=== PATIENT | female | born 1975 | race Caucasian/White ===

== ENCOUNTER 2017-03-08 23:08 | Inpatient (IN) | payer MEDICAID, OTHER ==
[2017-03-09 00:42] LABS: Hematocrit 37 % (35-47); Hemoglobin 12.4 g/dl (12.0-16.0); Mean Corpuscular HGB Conc 34 g/dl (31-36); Mean Corpuscular Hemoglobin 31 pg (27-31); Mean Corpuscular Volume 92 fL (80-97); Mean Platelet Volume 8 um3 (7.4-10.4); Red Blood Count 4.04 10^6/ul (4.0-5.4); Red Cell Distribution Width 14 % (10.5-15)
[2017-03-09 00:56] LABS: ALT 53 U/L (7-52); AST 50 U/L (13-39); Albumin 3.7 g/dL (3.2-5.2); Alkaline Phosphatase 40 U/L (34-104); Anion Gap 4 mmol/L (2-11); BUN/Creatinine Ratio 20.7 (8-20); Blood Urea Nitrogen 18 mg/dL (6-24); CO2 Carbon Dioxide 25 mmol/L (22-32); Calcium 8.7 mg/dL (8.6-10.3); Chloride 105 mmol/L (101-111); EGFR African American 91.4 (>60); EGFR Non-African American 71.1 (>60); Globulin 3.1 g/dL (2-4); Glucose 94 mg/dL (70-100); Potassium 3.6 mmol/L (3.5-5.0); Sodium 134 mmol/L (133-145); Total Protein 6.8 g/dL (6.4-8.9)
[2017-03-09 01:21] LABS: Acetaminophen < 15 mcg/mL; Alcohol < 10 mg/dL (<10); Salicylate < 2.50 mg/dL (<30)
[2017-03-09 01:32] LABS: TSH (Thyroid Stimulating Horm) 3.13 mcIU/mL (0.34-5.60)
[2017-03-09] MEDS ORDERED: Ibuprofen TAB* 600 MG PO ONE (01:34)
[2017-03-09] MEDS ORDERED: Nicotine Inhaler* 10 MG AMP INH ONE (01:34)
[2017-03-09] MEDS ORDERED: Mouth Piece, Nicotine* 1 EACH CARTRIDGE ONE (01:52)
[2017-03-09 03:01] LABS: Urine Bilirubin Negative (Negative); Urine Glucose Negative (Negative); Urine Nitrite Negative (Negative)
[2017-03-09] MEDS ORDERED: LORazepam TAB(*) 1 MG PO ONE (03:02)
[2017-03-09 03:12] LABS: Benzodiazepine Urine Screen None Detected (None Detect)
[2017-03-09] MEDS ORDERED: Carisoprodol TAB* 350 MG ONE (04:28)
[2017-03-09] MEDS ORDERED: Mouth Piece, Nicotine* 1 EACH CARTRIDGE INH SCH (04:28)
[2017-03-09] MEDS ORDERED: Al Hydrox/Mg Hydrox/Simet LIQ* 30 ML UDC PO PRN (04:28)
[2017-03-09] MEDS: Carisoprodol TAB* 350 MG Q6H PRN PO ×3 (04:30→17:40)
[2017-03-09] MEDS ORDERED: Loperamide CAP* 4 MG INITIAL PRN DOSE PO (04:30)
[2017-03-09] MEDS ORDERED: Nicotine Inhaler* 10 MG AMP ONE (04:33)
[2017-03-09] MEDS: Nicotine GUM* 2 MG PO PRN (04:34)
--- NOTE | 2017-03-09 04:59 | ED ---
Jose Guadalupe Espinoza Alok, scribed for Preston Cedillo MD on 03/09/17 at 0223 . Psychiatric Complaint - HPI Summary HPI Summary: 41F presents to the ED for depression. Pt notes recent stress 3-4 weeks ago followed by 2-3 days of crisis. Pt note nausea, POSEY, back pain, and trouble sleping. Pt denies auditory hallucinations. Pt denies abd pain or lower extremity edema. Pt has h/o suicide attempts but denies hurting her self this evening. Pt notes h/o rehabilitation for substance abuse for which she recently relapsed. Pt denies ETOH use. Pt smokes tobacco. PMHx includes Hepatitis C, anxiety and depression. Pt denies taking medication for anxiety or depression for the past 3 years. Pt sees a master machinist. - History Of Current Complaint Chief Complaint: EDMentalHealth Time Seen by Provider: 03/09/17 01:27 Hx Obtained From: Patient Hx Last Menstrual Period: 03/28/14 Onset/Duration: Lasting Weeks, Still Present, Worse Since - 2-3 days ago Timing: Constant Severity Initially: Moderate Severity Currently: Moderate Character: Depressed, Anxious Aggravating Factor(s): Recent Stress, Drug Use Alleviating Factor(s): Counseling Associated Signs And Symptoms: Positive: Sleep Disturbance. Negative: Hallucinating, Paranoid Behavior Related History: Positive For: Drug Abuse Counseling Has Suicidal: Reports: Has Prior Attempt(s) - Allergies/Home Medications Allergies/Adverse Reactions: Allergies Allergy/AdvReac Type Severity Reaction Status Date / Time No Known Allergies Allergy Verified 02/22/13 23:41 PMH/Surg Hx/FS Hx/Imm Hx Endocrine/Hematology History: Denies: Hx Anticoagulant Therapy, Hx Diabetes, Hx Thyroid Disease Cardiovascular History: Denies: Hx Hypertension Respiratory History: Denies: Hx Asthma, Hx Chronic Obstructive Pulmonary Disease (COPD) GI History: Reports: Other GI Disorders - Hx GERD, hx Hep C Denies: Hx Ulcer History: Reports: Other Problems/Disorders - Uretal stone removed 02/23/13 during cystoscopy Neurological History: Reports: Other Neuro Impairments/Disorders - Hx depression Psychiatric History: Denies: Hx Eating Disorder - Surgical History Surgery Procedure, Year, and Place: twin delivery 1998, Infectious Disease History: No Infectious Disease History: Reports: Hx of Known/Suspected MRSA - leg infection 2009 Denies: Hx Clostridium Difficile, Hx Hepatitis, Hx Human Immunodeficiency Virus (HIV), Hx Shingles, Hx Tuberculosis, Traveled Outside the [place] in Last 30 Days - Family History Known Family History: Negative: Cardiac Disease, Hypertension, Diabetes - Social History Occupation: Unemployed Alcohol Use: None Substance Use Type: Reports: Cocaine, Heroin, Prescribed Substance Use Comment - Amount & Last Used: last used early this morning Smoking Status (MU): Heavy Every Day Tobacco Smoker Type: Cigarettes Length of Time of Smoking/Using Tobacco: 1 ppd Review of Systems Negative: Fever Positive: Nausea. Negative: Abdominal Pain Positive: Other - back pain. Negative: Edema Positive: Headache Positive: Anxious, Depressed All Other Systems Reviewed And Are Negative: Yes Physical Exam - Summary Physical Exam Summary: The patient is well-nourished in no acute distress and in no acute pain. The skin is warm and dry and skin color reflects adequate perfusion. HEENT: The head is normocephalic and atraumatic. The pupils are equal and reactive. The conjunctivae are clear and without drainage. Nares are patent and without drainage. Mouth reveals moist mucous membranes and the throat is without erythema and exudate. Neck is supple with full range of motion and non-tender. There are no carotid bruits. There is no neck vein distension. Respiratory: Chest is non-tender. Lungs are clear to auscultation and breath sounds are symmetrical and equal. Cardiovascular: Hear is regular rate and rhythm. There is no murmur or rub auscultated. There is no peripheral edema and pulses are symmetrical and equal. Abdomen: The abdomen is soft and non-tender. There are normal bowel sounds heard in all four quadrants and there is no organomegaly palpated. Musculoskeletal: There is no back pain noted. Extremities are non-tender with full range of motion. There is good capillary refill. There is no peripheral edema or calf tenderness elicited. No arm trauma. Neurological: Patient is alert and oriented to person, place and time. The patient has symmetrical motor strength in all four extremities. Cranial nerves are grossly intact. Deep tendon reflexes are symmetrical and equal in all four extremities. Psychiatric: The patient appears anxious and depressed and is cooperative. Triage Information Reviewed: Yes Vital Signs On Initial Exam: Initial Vitals Temp Pulse Resp BP Pulse Ox 97.1 F 75 18 124/58 99 03/08/17 23:32 03/08/17 23:32 03/08/17 23:32 03/08/17 23:32 03/08/17 23:32 Vital Signs Reviewed: Yes - [place] Coma Scale Coma Scale Total: 15 Diagnostics - Vital Signs Vital Signs Temp Pulse Resp BP Pulse Ox 03/08/17 23:55 97.1 F 75 18 124/58 99 03/08/17 23:32 97.1 F 75 18 124/58 99 - Laboratory Lab Results: Lab Results 03/09/17 03/09/17 Range/Units 00:33 00:33 WBC 5.0 (3.5-10.8) 10^3/ul RBC 4.04 (4.0-5.4) 10^6/ul Hgb 12.4 (12.0-16.0) g/dl Hct 37 (35-47) % MCV 92 (80-97) fL MCH 31 (27-31) pg MCHC 34 (31-36) g/dl RDW 14 (10.5-15) % Plt Count 179 (150-450) 10^3/ul MPV 8 (7.4-10.4) um3 Neut % (Auto) 55.4 (38-83) % Lymph % (Auto) 28.7 (25-47) % Summers % (Auto) 12.6 H (1-9) % Eos % (Auto) 2.4 (0-6) % Baso % (Auto) 0.9 (0-2) % Absolute Neuts (auto) 2.8 (1.5-7.7) 10^3/ul Absolute Lymphs (auto) 1.4 (1.0-4.8) 10^3/ul Absolute Monos (auto) 0.6 (0-0.8) 10^3/ul Absolute Eos (auto) 0.1 (0-0.6) 10^3/ul Absolute Basos (auto) 0 (0-0.2) 10^3/ul Absolute Nucleated RBC 0 10^3/ul Nucleated RBC % 0.1 Sodium 134 (133-145) mmol/L Potassium 3.6 (3.5-5.0) mmol/L Chloride 105 (101-111) mmol/L Carbon Dioxide 25 (22-32) mmol/L Anion Gap 4 (2-11) mmol/L BUN 18 (6-24) mg/dL Creatinine 0.87 (0.51-0.95) mg/dL Est GFR ( Amer) 91.4 (>60) Est GFR (Non-Af Amer) 71.1 (>60) BUN/Creatinine Ratio 20.7 H (8-20) Glucose 94 (70-100) mg/dL Calcium 8.7 (8.6-10.3) mg/dL Total Bilirubin 0.30 (0.2-1.0) mg/dL AST 50 H (13-39) U/L ALT 53 H (7-52) U/L Alkaline Phosphatase 40 (34-104) U/L Total Protein 6.8 (6.4-8.9) g/dL Albumin 3.7 (3.2-5.2) g/dL Globulin 3.1 (2-4) g/dL Albumin/Globulin Ratio 1.2 (1-3) TSH 3.13 (0.34-5.60) mcIU/mL Salicylates < 2.50 (<30) mg/dL Acetaminophen < 15 mcg/mL Serum Alcohol < 10 (<10) mg/dL Result Diagrams: 03/09/17 00:33 03/09/17 00:33 Lab Statement: Any lab studies that have been ordered have been reviewed, and results considered in the medical decision making process. Course/Dx - Course Course Of Treatment: 41 y/o female presents with anxiety/depression. Pt is medically clear for MHU evaluation @ 0134. PT signed papers 9.13 for voluntary [place] to [facility] - Differential Dx/Clinical Impression Differential Diagnosis/HQI/PQRI: Positive: Other - substance abuse Provider Diagnosis: Depression, Suicidal ideation Discharge - Discharge Plan Condition: Stable Disposition: PSYCHIATRIC FAC[place] Referrals: Non Staff,Doctor [Primary Care Provider] - The documentation as recorded by the Jose Guadalupe lowery Alok accurately reflects the service I personally performed and the decisions made by , Preston Cedillo MD.
[2017-03-09] MEDS: Vitamin THERAPEUTIC TAB PO SCH (08:37)
[2017-03-09] MEDS: BuPROPion XL* 150 MG TAB.XL PO SCH (10:39)
[2017-03-09] MEDS: Ibuprofen TAB* 400 MG Q6H PRN PO ×2 (10:40→17:40)
[2017-03-09] MEDS: Nicotine PATCH 21 MG/24 HR* PATCH TRANSDERM SCH (10:40)
[2017-03-09] MEDS: Acetaminophen TAB* 325 MG PO PRN (10:43)
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
[2017-03-09] MEDS: Gabapentin CAP(*) 100 MG PO SCH ×2 (13:46→21:13)
[2017-03-09] MEDS ORDERED: Albuterol/Ipratropium NEB.SOL* Albuterol 2.5 MG/Ipratropium 0.5 MG 3 ML INH SCH (14:00)
[2017-03-09] MEDS: Albuterol HFA INHALER* 8 gm MDI INH PRN (17:43)
[2017-03-09] MEDS: Albuterol/Ipratropium NEB.SOL* Albuterol 2.5 MG/Ipratropium 0.5 MG 3 ML INH SCH (19:23)
[2017-03-09] MEDS: MDI INH SCH (19:23)
[2017-03-09] MEDS: FLUTICAS INH SCH (19:23)
[2017-03-09] MEDS: SALMET INH SCH (19:23)
[2017-03-09] MEDS: Naproxen TAB* 250 MG PO SCH (21:13)
[2017-03-09] MEDS: Nicotine Patch Removal NOTE FOLLOW UP SCH (21:18)
[2017-03-09] MEDS: Nicotine Inhaler* 10 MG AMP INH PRN (21:57)
[2017-03-10] MEDS: Albuterol/Ipratropium NEB.SOL* Albuterol 2.5 MG/Ipratropium 0.5 MG 3 ML INH SCH ×2 (07:42→19:37)
[2017-03-10] MEDS: SALMET INH SCH ×2 (07:43→19:38)
[2017-03-10] MEDS: MDI INH SCH ×2 (07:43→19:38)
[2017-03-10] MEDS: FLUTICAS INH SCH ×2 (07:43→19:38)
[2017-03-10] MEDS ORDERED: BuPROPion XL* 150 MG TAB.XL PO SCH (09:00)
[2017-03-10] MEDS ORDERED: Fluticasone NASAL SPRAY 50MCG* 16 gm SPRAY BTL BOTH NARES SCH (09:00)
[2017-03-10] MEDS: Gabapentin CAP(*) 100 MG PO SCH (10:19)
[2017-03-10] MEDS: BuPROPion XL* 150 MG TAB.XL PO SCH (10:19)
[2017-03-10] MEDS: Naproxen TAB* 250 MG PO SCH ×2 (10:19→21:30)
[2017-03-10] MEDS: Cetirizine* 10 MG TAB PO SCH (10:20)
[2017-03-10] MEDS: Vitamin THERAPEUTIC TAB PO SCH (10:20)
[2017-03-10] MEDS: Carisoprodol TAB* 350 MG Q6H PRN PO ×3 (10:23→23:30)
[2017-03-10] MEDS: Acetaminophen TAB* 325 MG PO PRN ×3 (10:23→22:50)
[2017-03-10] MEDS: Nicotine PATCH 21 MG/24 HR* PATCH TRANSDERM SCH (10:24)
[2017-03-10] MEDS ORDERED: cloNIDine 0.1 MG PATCH* 0.1 MG/24 HR 7 DAY PATCH TRANSDERM SCH (14:00)
--- NOTE | 2017-03-10 14:02 | PN ---
Subjective - Subjective Service Type: 20724 Hosp care 15 min low complexity Subjective: The patient is somatic and uncomfortable, having opioid withdrawal with crampy muscle pain, nausea and insomnia. She is also congested and having breathing problems. She remains anxious but denies SI. Objective - Appearance Appearance: Well Developed/Nourished Dysmorphic Features: No Hygiene: Normal Grooming: Fairly Well Kept - Behavior Psychomotor Activities: Normal Exhibits Abnormal Movement: No - Attitude and Relatedness Attitude and Relatedness: Cooperative Eye Contact: Fair - Speech Quality: Unpressured Latencies: Normal Quantity: Appropriate - Mood Patient's Decription of Mood: "Anxious" - Affect Observed Affect: Fair Affect Consistent with: Euthymia - Thought Process Patient's Thought Process: Coherent Thought Content: No Passive Wish, No Suicidal Planning, No Homicidal Ideation, No Paranoid Ideation - Sensorium Experiencing Hallucinations: No, Sensorium is Clear Type of Hallucinations: Visual: No, Auditory: No, Command: No - Level of Consciousness Level of Consciousness: Alert Orientation: Yes Intact, Yes Orientated to Time, Yes Orientated to Place, Yes Orientated to Person - Impulse Control Impulse Control: Tenuous - Insight and Judgement Insight and Judgement: Fair - Group Participation Particating in Group Activities: Yes - Medication Management Medication Management Adherence: Yes Assessment - Assessment Merits Inpatient Hospitalization: For Immediate Safety, For Stabilization Inpatient DSM-IV Dx: 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 , white female with a history of cocaine and opioid use disorders arrives voluntarily seeking admission for SI two weeks after relapse on IV cocaine and heroin. Patient remains in significant opioid withdrawal, for which she is receiving clonidine detox protocol meds. Plan - Plan Treatment Plan: Name: MONA ANDERSON Birthdate: 1975 [id number] Continue clonidine detox. We have resumed the bupropion XL 150mg PO Qday and gabapentin 600mg PO TID she takes for depression and anxiety. [employer] early next week for d/c home with outpatient substance abuse follow up at [facility]. Continued Medication Management: Continue Outpt Medication Medications: Current Medications Acetaminophen (Tylenol Tab*) 650 mg PO Q4H PRN PRN Reason: PAIN or TEMP > 101 F Last Admin: 03/10/17 10:23 Dose: 650 mg Al Hydrox/Mg Hydrox/Simethicone (Maalox Plus*) 30 ml PO Q4H PRN PRN Reason: INDIGESTION Albuterol (Ventolin Hfa Inhaler*) 2 puff INH Q2H PRN PRN Reason: SOB/WHEEZING Last Admin: 03/09/17 17:43 Dose: 2 puff Albuterol/Ipratropium (Duoneb (Albuterol 2.5 Mg/Ipratropium 0.5 Mg)) 1 neb INH RT.BID [facility] Last Admin: 03/10/17 07:42 Dose: 1 neb Bupropion HCl (Wellbutrin Xl *) 150 mg PO DAILY [facility] Last Admin: 03/10/17 10:19 Dose: 150 mg Carisoprodol (Soma Tab*) 350 mg PO Q6H PRN PRN Reason: MUSCLE CRAMPS/ACHING Last Admin: 03/10/17 10:23 Dose: 350 mg Cetirizine HCl (Zyrtec*) 10 mg PO DAILY [facility] Last Admin: 03/10/17 10:20 Dose: 10 mg Clonidine HCl (Kyunvwuy-Hxg-6 0.1 Mg Patch*) 0.1 mg TRANSDERM Q7D [facility] Device (Nicotine Mouth Piece*) 1 each INH .[facility] Gabapentin (Neurontin Cap(*)) 600 mg PO TID [facility] Guaifenesin (Mucinex*) 600 mg PO BID [facility] Ibuprofen (Motrin Tab*) 800 mg PO Q6H PRN PRN Reason: BONE/JOINT PAIN Loperamide HCl (Imodium Cap*) 4 mg PO ONCE PRN PRN Reason: DIARRHEA INITIAL DOSE Loperamide HCl (Imodium Cap*) 2 mg PO .SEE BELOW PRN PRN Reason: DIARRHEA Multivitamins (Theragran Tab*) 1 tab PO DAILY [facility] Last Admin: 03/10/17 10:20 Dose: 1 tab Naproxen (Naprosyn Tab*) 500 mg PO BID [facility] Last Admin: 03/10/17 10:19 Dose: 500 mg Nicotine (Nicotine Inhaler*) 10 mg INH Q2H PRN PRN Reason: CRAVING Last Admin: 03/09/17 21:57 Dose: 10 mg Nicotine (Nicotine Patch 21 Mg/24 Hr*) 1 patch TRANSDERM DAILY [facility] Last Admin: 03/10/17 10:24 Dose: 1 patch Nicotine Polacrilex (Nicotine Gum*) 2 mg PO Q2H PRN PRN Reason: CRAVING Last Admin: 03/09/17 04:34 Dose: 2 mg Pharmacy Profile Note (Nicotine Patch Removal Note*) 1 note FOLLOW UP 2100 [facility] Last Admin: 03/09/17 21:18 Dose: 1 note Fluticasone/Salmeterol (Advair Hfa 115/21 (Nf)) 2 puff INH BID [facility] Last Admin: 03/10/17 07:43 Dose: 2 puff Trazodone HCl (Desyrel Tab*) 100 mg PO BEDTIME PRN PRN Reason: INSOMNIA - Discharge Plan Discharge Plan: Inpatient Hospitalization
[2017-03-10] MEDS ORDERED: Ondansetron TAB* 4 MG PO PRN (14:08)
[2017-03-10] MEDS: Gabapentin CAP(*) 300 MG PO SCH ×2 (14:31→21:31)
[2017-03-10] MEDS: Ibuprofen TAB* 800 MG PO PRN ×2 (17:26→22:50)
[2017-03-10] MEDS: Loperamide CAP* 2 MG AFTER EACH LOOSE STOOL MDD 16 MG PO PRN ×2 (17:26→21:33)
[2017-03-10] MEDS: Nicotine Patch Removal NOTE FOLLOW UP SCH (21:32)
[2017-03-10] MEDS: guaiFENesin ER TAB 600 MG PO SCH (21:35)
[2017-03-10] MEDS: Nicotine Inhaler* 10 MG AMP INH PRN (22:51)
[2017-03-10] MEDS: traZODone TAB* 100 MG PO PRN (23:30)
[2017-03-10] MEDS: Nicotine GUM* 2 MG PO PRN (23:30)
[2017-03-11] MEDS: MDI INH SCH ×2 (07:39→19:58)
[2017-03-11] MEDS: SALMET INH SCH ×2 (07:39→19:58)
[2017-03-11] MEDS: FLUTICAS INH SCH ×2 (07:39→19:58)
[2017-03-11] MEDS: Albuterol/Ipratropium NEB.SOL* Albuterol 2.5 MG/Ipratropium 0.5 MG 3 ML INH SCH ×2 (07:39→19:57)
[2017-03-11] MEDS: Gabapentin CAP(*) 300 MG PO SCH ×3 (08:16→20:50)
[2017-03-11] MEDS: Vitamin THERAPEUTIC TAB PO SCH (08:16)
[2017-03-11] MEDS: BuPROPion XL* 150 MG TAB.XL PO SCH (08:17)
[2017-03-11] MEDS: Naproxen TAB* 250 MG PO SCH ×2 (08:17→20:50)
[2017-03-11] MEDS: Cetirizine* 10 MG TAB PO SCH (08:17)
[2017-03-11] MEDS: Carisoprodol TAB* 350 MG Q6H PRN PO ×2 (08:18→17:29)
[2017-03-11] MEDS: Ibuprofen TAB* 800 MG PO PRN ×2 (08:18→17:29)
[2017-03-11] MEDS: Acetaminophen TAB* 325 MG PO PRN ×2 (08:18→17:29)
[2017-03-11] MEDS: guaiFENesin ER TAB 600 MG PO SCH ×2 (08:24→20:53)
[2017-03-11] MEDS: Nicotine PATCH 21 MG/24 HR* PATCH TRANSDERM SCH (08:24)
--- NOTE | 2017-03-11 17:29 | PN ---
Subjective - Subjective Subjective: Kristin endorses continued depressed mood but some improvement in previous anxiety symptoms. She denies HI/SI. She is aware of and agreeable to current plan of treatment. She requests up-titration of Buproprion XL to 300 mg, ( previously took 450 mg). Objective - Appearance Appearance: Healthy Appearing Dysmorphic Features: No Hygiene: Normal Grooming: Fairly Well Kept - Behavior Psychomotor Activities: Normal Exhibits Abnormal Movement: No - Attitude and Relatedness Attitude and Relatedness: Cooperative Eye Contact: Fair - Speech Quality: Unpressured Latencies: Normal Quantity: Terse - Mood Patient's Decription of Mood: "Sad" - Affect Observed Affect: Constricted Affect Consistent with: Dysphoria - Thought Process Patient's Thought Process: Coherent, Goal Directed Thought Content: No Passive Wish, No Suicidal Planning, No Homicidal Ideation, No Paranoid Ideation - Sensorium Experiencing Hallucinations: No, Sensorium is Clear - Level of Consciousness Level of Consciousness: Alert Orientation: Yes Intact - Impulse Control Impulse Control: Intact - Insight and Judgement Insight and Judgement: Fair - Group Participation Particating in Group Activities: Yes - Medication Management Medication Management Adherence: Yes Assessment - Assessment Merits Inpatient Hospitalization: [facility] Improve[facility], For Discharge Planning Inpatient DSM-IV Dx: Cocaine Induced Depressive DO Clinical Impression: Continues to endorse depressed mood, but denying suicidality, reasonable to increase dose of Wellbutrin XL, patient understands it will take about 2-4 weeks to get the full effect. She needs continued admission for stabilization. Plan - Plan Treatment Plan: Name: KRISTIN ANDERSON Birthdate: 1975 [id number] Medications: Current Medications Acetaminophen (Tylenol Tab*) 650 mg PO Q4H PRN PRN Reason: PAIN or TEMP > 101 F Last Admin: 03/11/17 08:18 Dose: 650 mg Al Hydrox/Mg Hydrox/Simethicone (Maalox Plus*) 30 ml PO Q4H PRN PRN Reason: INDIGESTION Albuterol (Ventolin Hfa Inhaler*) 2 puff INH Q2H PRN PRN Reason: SOB/WHEEZING Last Admin: 03/09/17 17:43 Dose: 2 puff Albuterol/Ipratropium (Duoneb (Albuterol 2.5 Mg/Ipratropium 0.5 Mg)) 1 neb INH RT.BID JULISSA Last Admin: 03/11/17 07:39 Dose: Not Given Bupropion HCl (Wellbutrin Xl *) 150 mg PO DAILY [facility] Last Admin: 03/11/17 08:17 Dose: 150 mg Carisoprodol (Soma Tab*) 350 mg PO Q6H PRN PRN Reason: MUSCLE CRAMPS/ACHING Last Admin: 03/11/17 08:18 Dose: 350 mg Cetirizine HCl (Zyrtec*) 10 mg PO DAILY [facility] Last Admin: 03/11/17 08:17 Dose: 10 mg Clonidine HCl (Ntrldlee-Syf-7 0.1 Mg Patch*) 0.1 mg TRANSDERM Q7D [facility] Last Admin: 03/10/17 14:45 Dose: 0.1 patch Device (Nicotine Mouth Piece*) 1 each INH .[facility] Gabapentin (Neurontin Cap(*)) 600 mg PO TID [facility] Last Admin: 03/11/17 14:51 Dose: Not Given Guaifenesin (Mucinex*) 600 mg PO BID [facility] Last Admin: 03/11/17 08:24 Dose: 600 mg Ibuprofen (Motrin Tab*) 800 mg PO Q6H PRN PRN Reason: BONE/JOINT PAIN Last Admin: 03/11/17 08:18 Dose: 800 mg Loperamide HCl (Imodium Cap*) 4 mg PO ONCE PRN PRN Reason: DIARRHEA INITIAL DOSE Loperamide HCl (Imodium Cap*) 2 mg PO .SEE BELOW PRN PRN Reason: DIARRHEA Last Admin: 03/10/17 21:33 Dose: 2 mg Multivitamins (Theragran Tab*) 1 tab PO DAILY [facility] Last Admin: 03/11/17 08:16 Dose: 1 tab Naproxen (Naprosyn Tab*) 500 mg PO BID [facility] Last Admin: 03/11/17 08:17 Dose: 500 mg Nicotine (Nicotine Inhaler*) 10 mg INH Q2H PRN PRN Reason: CRAVING Last Admin: 03/10/17 22:51 Dose: 10 mg Nicotine (Nicotine Patch 21 Mg/24 Hr*) 1 patch TRANSDERM DAILY [facility] Last Admin: 03/11/17 08:24 Dose: 1 patch Nicotine Polacrilex (Nicotine Gum*) 2 mg PO Q2H PRN PRN Reason: CRAVING Last Admin: 03/10/17 23:30 Dose: 2 mg Ondansetron HCl (Zofran Tab*) 4 mg PO Q6H PRN PRN Reason: NAUSEA Pharmacy Profile Note (Nicotine Patch Removal Note*) 1 note FOLLOW UP 2100 JULISSA Last Admin: 03/10/17 21:32 Dose: 1 note Fluticasone/Salmeterol (Advair Hfa 115/21 (Nf)) 2 puff INH BID [facility] Last Admin: 03/11/17 07:39 Dose: Not Given Trazodone HCl (Desyrel Tab*) 100 mg PO BEDTIME PRN PRN Reason: INSOMNIA Last Admin: 03/10/17 23:30 Dose: 100 mg - Discharge Plan Discharge Plan: Outpatient Follow Up Outpatient Program: [facility]
[2017-03-11] MEDS: Nicotine Patch Removal NOTE FOLLOW UP SCH (20:51)
[2017-03-11] MEDS: traZODone TAB* 100 MG PO PRN (20:53)
[2017-03-12] MEDS: SALMET INH SCH ×2 (07:09→21:25)
[2017-03-12] MEDS: Albuterol/Ipratropium NEB.SOL* Albuterol 2.5 MG/Ipratropium 0.5 MG 3 ML INH SCH ×2 (07:09→20:11)
[2017-03-12] MEDS: MDI INH SCH ×2 (07:09→21:25)
[2017-03-12] MEDS: FLUTICAS INH SCH ×2 (07:09→21:25)
[2017-03-12] MEDS: Gabapentin CAP(*) 300 MG PO SCH ×3 (08:31→21:22)
[2017-03-12] MEDS: BuPROPion XL* 150 MG TAB.XL PO SCH (08:31)
[2017-03-12] MEDS: guaiFENesin ER TAB 600 MG PO SCH ×2 (08:32→21:22)
[2017-03-12] MEDS: Vitamin THERAPEUTIC TAB PO SCH (08:32)
[2017-03-12] MEDS: Naproxen TAB* 250 MG PO SCH ×2 (08:32→21:22)
[2017-03-12] MEDS: Nicotine PATCH 21 MG/24 HR* PATCH TRANSDERM SCH (08:33)
[2017-03-12] MEDS: Cetirizine* 10 MG TAB PO SCH (08:33)
[2017-03-12] MEDS: Albuterol HFA INHALER* 8 gm MDI INH PRN (08:33)
[2017-03-12] MEDS: Acetaminophen TAB* 325 MG PO PRN ×2 (08:38→14:21)
[2017-03-12] MEDS: Carisoprodol TAB* 350 MG Q6H PRN PO ×3 (08:38→21:22)
[2017-03-12] MEDS: Ibuprofen TAB* 800 MG PO PRN ×3 (08:38→21:23)
[2017-03-12] MEDS: Nicotine Inhaler* 10 MG AMP INH PRN ×2 (11:55→21:23)
[2017-03-12] MEDS ORDERED: BuPROPion XL* 150 MG TAB.XL PO ONE (14:30)
[2017-03-12] MEDS: traZODone TAB* 100 MG PO PRN (21:22)
[2017-03-12] MEDS: Nicotine Patch Removal NOTE FOLLOW UP SCH (21:24)
[2017-03-13] MEDS: Nicotine PATCH 21 MG/24 HR* PATCH TRANSDERM SCH (08:10)
[2017-03-13] MEDS: Ibuprofen TAB* 800 MG PO PRN ×2 (08:11→18:06)
[2017-03-13] MEDS: Naproxen TAB* 250 MG PO SCH ×2 (08:11→20:27)
[2017-03-13] MEDS: Gabapentin CAP(*) 300 MG PO SCH ×3 (08:12→20:27)
[2017-03-13] MEDS: guaiFENesin ER TAB 600 MG PO SCH ×2 (08:13→20:28)
[2017-03-13] MEDS: BuPROPion XL* 300 MG TAB.XL PO SCH (08:13)
[2017-03-13] MEDS: Vitamin THERAPEUTIC TAB PO SCH (08:13)
[2017-03-13] MEDS: Carisoprodol TAB* 350 MG Q6H PRN PO ×2 (08:14→18:06)
[2017-03-13] MEDS: Acetaminophen TAB* 325 MG PO PRN ×3 (08:14→22:00)
[2017-03-13] MEDS: Cetirizine* 10 MG TAB PO SCH (08:14)
[2017-03-13] MEDS: SALMET INH SCH ×2 (08:16→20:28)
[2017-03-13] MEDS: FLUTICAS INH SCH ×2 (08:16→20:28)
[2017-03-13] MEDS: MDI INH SCH ×2 (08:16→20:28)
[2017-03-13] MEDS: Albuterol/Ipratropium NEB.SOL* Albuterol 2.5 MG/Ipratropium 0.5 MG 3 ML INH SCH ×2 (08:30→19:45)
[2017-03-13] MEDS: Nicotine GUM* 2 MG PO PRN ×2 (08:30→13:37)
[2017-03-13] MEDS ORDERED: traZODone TAB* 100 MG PO PRN (12:48)
--- NOTE | 2017-03-13 12:54 | PN ---
Subjective - Subjective Service Type: 67420 Hosp care 15 min low complexity Subjective: The patient states that the worst of her heroin withdrawal is over with, although she continues to feel some residual aches and pains. Her mood remains low and she is still anxious, although she denies SI and requests d/c to home today. She has not spoken yet with her PO and uncertain of her legal standing at this time, specifically whether she is facing further long-term time for relapsing two weeks ago. The patient is interested in started long acting injectable naltrexone therapy but understands that she must have at least two weeks of clean time to receive this at [facility]. She is participating fully in milieu activities per staff. Objective - Appearance Appearance: Well Developed/Nourished Dysmorphic Features: No Hygiene: Normal Grooming: Fairly Well Kept - Behavior Psychomotor Activities: Normal Exhibits Abnormal Movement: No - Attitude and Relatedness Attitude and Relatedness: Cooperative Eye Contact: Fair - Speech Quality: Unpressured Latencies: Normal Quantity: Appropriate - Mood Patient's Decription of Mood: "Anxious" - Affect Observed Affect: Fair Affect Consistent with: Dysphoria - Thought Process Patient's Thought Process: Coherent Thought Content: No Passive Wish, No Suicidal Planning, No Homicidal Ideation, No Paranoid Ideation - Sensorium Experiencing Hallucinations: No, Sensorium is Clear Type of Hallucinations: Visual: No, Auditory: No, Command: No - Level of Consciousness Level of Consciousness: Alert Orientation: Yes Intact, Yes Orientated to Time, Yes Orientated to Place, Yes Orientated to Person - Impulse Control Impulse Control: Tenuous - Insight and Judgement Insight and Judgement: Fair - Group Participation Particating in Group Activities: Yes - Medication Management Medication Management Adherence: Yes Assessment - Assessment Merits Inpatient Hospitalization: [facility], Pending Safe DC Plan Inpatient DSM-IV Dx: 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 , white female with a history of cocaine and opioid use disorders arrives voluntarily seeking admission for SI two weeks after relapse on IV cocaine and heroin. Patient remains in significant opioid withdrawal, for which she is receiving clonidine detox protocol meds. Plan - Plan Treatment Plan: Name: MONA ANDERSON Birthdate: 1975 [id number] Patient is succesfully detoxified from opioids and cocaine but remains depressed and anxious. She denies SI. We have resumed bupropion XL 300mg PO Qday and gabapentin 600mg PO TID she takes for depression and anxiety. Increase gabapentin to 900mg PO TID and increase trazodone to 200mg PO qhs. Will target d/c home tomorrow (03/14) with outpatient substance abuse follow up at [facility]. Continued Medication Management: Start Medication Medications: Current Medications Acetaminophen (Tylenol Tab*) 650 mg PO Q4H PRN PRN Reason: PAIN or TEMP > 101 F Last Admin: 03/13/17 08:14 Dose: 650 mg Al Hydrox/Mg Hydrox/Simethicone (Maalox Plus*) 30 ml PO Q4H PRN PRN Reason: INDIGESTION Albuterol (Ventolin Hfa Inhaler*) 2 puff INH Q2H PRN PRN Reason: SOB/WHEEZING Last Admin: 03/12/17 08:33 Dose: 2 puff Albuterol/Ipratropium (Duoneb (Albuterol 2.5 Mg/Ipratropium 0.5 Mg)) 1 neb INH RT.BID [facility] Last Admin: 03/13/17 08:30 Dose: Not Given Bupropion HCl (Bupropion Xl*) 300 mg PO DAILY [facility] Last Admin: 03/13/17 08:13 Dose: 300 mg Carisoprodol (Soma Tab*) 350 mg PO Q6H PRN PRN Reason: MUSCLE CRAMPS/ACHING Last Admin: 03/13/17 08:14 Dose: 350 mg Cetirizine HCl (Zyrtec*) 10 mg PO DAILY [facility] Last Admin: 03/13/17 08:14 Dose: 10 mg Clonidine HCl (Uyebliwy-Qjt-7 0.1 Mg Patch*) 0.1 mg TRANSDERM Q7D [facility] Last Admin: 03/10/17 14:45 Dose: 0.1 patch Device (Nicotine Mouth Piece*) 1 each INH .[facility] Gabapentin (Neurontin Cap(*)) 900 mg PO TID [facility] Guaifenesin (Mucinex*) 600 mg PO BID [facility] Last Admin: 03/13/17 08:13 Dose: 600 mg Ibuprofen (Motrin Tab*) 800 mg PO Q6H PRN PRN Reason: BONE/JOINT PAIN Last Admin: 03/13/17 08:11 Dose: 800 mg Loperamide HCl (Imodium Cap*) 4 mg PO ONCE PRN PRN Reason: DIARRHEA INITIAL DOSE Loperamide HCl (Imodium Cap*) 2 mg PO .SEE BELOW PRN PRN Reason: DIARRHEA Last Admin: 03/10/17 21:33 Dose: 2 mg Multivitamins (Theragran Tab*) 1 tab PO DAILY [facility] Last Admin: 03/13/17 08:13 Dose: 1 tab Naproxen (Naprosyn Tab*) 500 mg PO BID [facility] Last Admin: 03/13/17 08:11 Dose: 500 mg Nicotine (Nicotine Inhaler*) 10 mg INH Q2H PRN PRN Reason: CRAVING Last Admin: 03/12/17 21:23 Dose: 10 mg Nicotine (Nicotine Patch 21 Mg/24 Hr*) 1 patch TRANSDERM DAILY [facility] Last Admin: 03/13/17 08:10 Dose: 1 patch Nicotine Polacrilex (Nicotine Gum*) 2 mg PO Q2H PRN PRN Reason: CRAVING Last Admin: 03/13/17 08:30 Dose: 2 mg Ondansetron HCl (Zofran Tab*) 4 mg PO Q6H PRN PRN Reason: NAUSEA Pharmacy Profile Note (Nicotine Patch Removal Note*) 1 note FOLLOW UP 2100 [facility] Last Admin: 03/12/17 21:24 Dose: 1 note Fluticasone/Salmeterol (Advair Hfa 115/21 (Nf)) 2 puff INH BID [facility] Last Admin: 03/13/17 08:16 Dose: 2 puff Trazodone HCl (Desyrel Tab*) 200 mg PO BEDTIME PRN PRN Reason: INSOMNIA - Discharge Plan Discharge Plan: Outpatient Follow Up Outpatient Program: [facility]
[2017-03-13] MEDS: Nicotine Inhaler* 10 MG AMP INH PRN (18:07)
[2017-03-13] MEDS: Nicotine Patch Removal NOTE FOLLOW UP SCH (22:01)
[2017-03-14 07:53] VITALS: BP 94/53
[2017-03-14] MEDS: Albuterol/Ipratropium NEB.SOL* Albuterol 2.5 MG/Ipratropium 0.5 MG 3 ML INH SCH (08:27)
[2017-03-14] MEDS: Nicotine PATCH 21 MG/24 HR* PATCH TRANSDERM SCH (09:07)
[2017-03-14] MEDS: Vitamin THERAPEUTIC TAB PO SCH (09:08)
[2017-03-14] MEDS: Naproxen TAB* 250 MG PO SCH (09:08)
[2017-03-14] MEDS: Gabapentin CAP(*) 300 MG PO SCH (09:08)
[2017-03-14] MEDS: Cetirizine* 10 MG TAB PO SCH (09:09)
[2017-03-14] MEDS: MDI INH SCH (09:10)
[2017-03-14] MEDS: FLUTICAS INH SCH (09:10)
[2017-03-14] MEDS: SALMET INH SCH (09:10)
[2017-03-14] MEDS: BuPROPion XL* 300 MG TAB.XL PO SCH (09:10)
[2017-03-14] MEDS: guaiFENesin ER TAB 600 MG PO SCH (09:13)
[2017-03-14] MEDS: Acetaminophen TAB* 325 MG PO PRN (09:14)
[2017-03-14] MEDS: Carisoprodol TAB* 350 MG Q6H PRN PO (09:14)
[2017-03-14] MEDS: Nicotine Inhaler* 10 MG AMP INH PRN (09:16)
--- NOTE | 2017-03-14 13:13 | PN ---
[facility]: Group Therapy Note - Service Type Service Type: [id number] Group Psychotherapy - Cognitive Behavioral Group Therapy ( CBT):Patient was attentive and participatory in CBT programming this morning, and remained in good behavioral control. Patient expressed positive insights regarding relevant treatment interventions and goals.
--- NOTE | 2017-03-15 06:00 | DS ---
DISCHARGE SUMMARY: DATE OF ADMISSION: 03/09/17 DATE OF DISCHARGE: 03/14/17 DISCHARGE DIAGNOSES: Are as follows: [place] I: Opioid induced depressive disorder, cocaine use disorder, opioid use disorder, PTSD by history. [place] II: Deferred. [place] III: Hepatitis C, Lyme disease, nephrolithiasis, hydronephrosis, carpal tunnel syndrome, history of cellulitis. [place] IV: Severe legal and occupational stressors. [place] V: At the time of admission was 33, and at the time of discharge was 60. CONDITION AT THE TIME OF DISCHARGE: Improved. The patient has successfully detoxified from cocaine and opioids. Other than some residual achiness, she denies nausea, diarrhea, or flu-like symptoms. Her mood is euthymic with a full affect and she denies suicidal or homicidal ideations. 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 She is agreeable with continuing medications and following up with outpatient services at the [facility]. We feel that she could be adequately treated in a less restrictive environment. MENTAL STATUS EXAM: At the time of discharge, the patient is a middle-aged attractive white female, who looks slightly older than her stated age. She is dressed in casual clothing with her hair well groomed and some makeup applied to her eyes. She has good posture and good eye contact. She is calm, cooperative and easy to establish a rapport with. Speech has a normal rate, tone and volume. Mood is euthymic with a full affect. Thought process is linear and goal directed. Thought content is significant for her desire to leave the hospital. She denies suicidal or homicidal ideations. She denies auditory or visual hallucinations. Insight and judgment appeared to be fair given her willingness to follow up with outpatient substance abuse and mental health treatment in the community. Cognitively, she is awake and alert with what would appear to be an average intellect. DISCHARGE INSTRUCTIONS: To the patient are as follows: A. medications. She takes: 1. Ventolin 90 mcg inhaled every 8 hours. 2. Atrovent inhaler 17 mcg inhaled b.i.d. 3. Naproxen 500 mg p.o. b.i.d. 4. DuoNeb 1 nebulizer treatment inhaled every 8 hours. 5. Sudafed 60 mg every 6 hours as a p.r.n. 6. Claritin 10 mg p.o. daily. 7. Flonase 2 sprays to both nares daily. 8. Advair 115/21 mcg 2 puffs inhaled twice daily. 9. Motrin 600 mg as a p.r.n. for pain. 10. Trazodone 200 mg p.o. q.h.s. 11. Gabapentin 900 mg p.o. t.i.d. 12. Wellbutrin 300 mg p.o. daily. B. Diet is regular. C. Activities as tolerated. The patient is declining the offer of continued nicotine replacement therapy. Indicating her preference to continue smoking for the time being. There are no laboratory or diagnostic studies pending at the time of discharge. D. Followup care: The patient will follow up on 03/17/17, at the [facility] where she receives both substance abuse and psychiatric treatment. HOSPITAL COURSE: Part A. Reason for admission: The patient is a 41-year-old white female with a history of cocaine and heroin dependence who arrived at our facility seeking voluntary admission secondary to impulsive, suicidal ideations in the context of a recent relapse on both cocaine and heroin. The patient had been sober for approximately one and a half years and managed to get herself job locally for [employer]. She indicates that she was feeling stressed out for occupational reasons and relapsed approximately 2 weeks ago on IV heroin and IV cocaine. She alerted her safety patrol officer, a man named Torsten King, who informed her that if she had a positive urine drug test when she came to her next appointment on Monday03/08/17 that she would likely be violated and sent back to nursing home. The patient panicked, felt impulsive, was not certain how she would hurt herself, but was feeling unsafe and requested someone bring her to the emergency room. Here she appears to be in opioid withdrawal presenting as hypersomnolent, fidgety, with pale skin and appearing to be somewhat uncomfortable. The patient had no specific suicide plan, but she felt that she has been neglecting her mental health and would like to receive both detoxification as well as antidepressant and antianxiety therapies. She has been safely attending her outpatient substance abuse program at [facility], and she had an appointment to see a psychiatric nurse practitioner at that facility sometime in March, but did not feel that she could wait for that opportunity. The patient endorses a history of PTSD, but reports that she had never been psychotic or had symptoms of bipolar jessica. Part B. Psychiatric treatment rendered: The patient was admitted to the adult behavioral health unit and placed on q.15-minute checks for her own safety. We placed her on an opioid withdrawal protocol using clonidine as well as other ancillary p.r.n. medications such as Imodium, Zofran, and Soma to reduce her discomfort. For anxiety, we started her on a trial of low dose gabapentin and then titrated this medication to the effective dose at 900 mg p.o. t.i.d. For depression, we started her on bupropion XL 150 mg and then titrated this to 300 mg in the morning. For sleep, we started her on trazodone 100 mg at night and increased this to 200 mg, which was an effective dose. We were able to reach her safety patrol officer, Mr. Torsten King, who indicated that because she has gotten herself into a detox program that he would not violate her, but his expectation was that she would continue to receive services at [facility] on an intensive basis which the patient agreed to. She did indicate that a particular risk for relapse is when she is alone at night and evenings and we suggested either an Alcoholic Anonymous or Narcotic Anonymous group for her in the community the suggestion of which she agreed with. The patient's detoxification went well and was not as intense as she expected it to be. She tolerated her psychiatric medications well and had a reduction in symptoms of both depressed mood and anxiety and she felt that she was ready for discharge. She steadfastly denied any suicidal thoughts and was safe on all checks and we feel at this time that she would be better suited receiving treatment in a less restrictive environment. The patient is in agreement with this as is her safety patrol officer and she is discharged today to the community where we wish her the best for safe, healthy and clean future. [id number]/[facility] #: [id number] DANNIELLE
== END 2017-03-14 12:30 | disposition home or self-care (01) | DRG 773 ==
LOC: ED 23:08 → BSU 03-09 04:58
PROVIDERS: ADMIT Psychiatry & Neurology Psychiatry; ATTEND Psychiatry & Neurology Psychiatry
DX: F11.14 Opioid abuse with opioid-induced mood disorder (principal); A69.20 Lyme disease, unspecified; R45.851 Suicidal ideations; N13.30 Unspecified hydronephrosis; F14.10 Cocaine abuse, uncomplicated; F43.10 Post-traumatic stress disorder, unspecified; B19.20 Unspecified viral hepatitis C without hepatic coma; N20.0 Calculus of kidney; G56.00 Carpal tunnel syndrome, unspecified upper limb
CPT/HCPCS: 36415; 80053; 80307; 80320; 80329; 81003; 84443; 84702; 85025; 90853; 94640; 94760; 99222; 99231; 99238; 99406; A9270-GY; G0480

== ENCOUNTER 2017-04-28 11:16 | Emergency (ER) | payer MEDICAID ==
[2017-04-28 11:55] VITALS: BP 93/50
--- NOTE | 2017-04-28 12:21 | ED ---
Medical Screening - HPI Summary HPI Summary: Pt here for medical screening exam for admission to detox at [facility], a detox center in [facility]. She is requesting labs and ECG for preliminary medical screen and results to be faxed to . She uses heroine - last used around 3:00am today. Also uses cocaine. Drinks ETOH "rarely". Smokes cigarettes > 1 PPD. Spoke w/ Rae Mckeon at [facility] who confirms pt needs CBC, CMP and ECG prior to phone screening - pt may call there after results are sent over today. Pt also denies SI/HI but admits to depression. - History of Current Complaint Chief Complaint: EDGeneral Stated Complaint: LABS FOR DETOX Time Seen by Provider: 04/28/17 12:01 PMH/Surg Hx/FS Hx/Imm Hx Previously Healthy: Yes Endocrine/Hematology History: Denies: Hx Anticoagulant Therapy, Hx Diabetes, Hx Thyroid Disease Cardiovascular History: Denies: Hx Hypertension Respiratory History: Reports: Hx Chronic Obstructive Pulmonary Disease (COPD) - advair, atrovent, albuterol, nebulizer tx's PRN, Hx Seasonal Allergies - claritin -D Denies: Hx Asthma GI History: Reports: Hx Gastroesophageal Reflux Disease, Other GI Disorders - Hep C - untx'd Denies: Hx Ulcer History: Reports: Other Problems/Disorders - Uretal stone removed 02/23/13 during cystoscopy Musculoskeletal History: Reports: 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 Sensory History: Denies: Hx Contacts or Glasses, Hx Hearing Aid Opthamlomology History: Denies: Hx Contacts or Glasses Neurological History: Reports: Hx Headaches, Other Neuro Impairments/Disorders - Hx depression Psychiatric History: Reports: Hx Depression, Hx Inpatient Treatment, Hx Community Mental Health Tx, Hx Suicide Attempt, Hx Substance Abuse - heroine, cocaine Denies: Hx Eating Disorder - Surgical History Surgery Procedure, Year, and Place: twin delivery 1998, Infectious Disease History: Yes Infectious Disease History: Reports: Hx Hepatitis - Hep C, Hx of Known/ Suspected MRSA - leg infection 2009 Denies: Hx Clostridium Difficile, Hx Human Immunodeficiency Virus (HIV), Hx Shingles, Hx Tuberculosis, Traveled Outside the [place] in Last 30 Days - Family History Known Family History: Negative: Cardiac Disease, Hypertension, Diabetes - Social History Alcohol Use: Rare Hx Substance Use: Yes Substance Use Type: Reports: Cocaine, Heroin Substance Use Comment - Amount & Last Used: patient reports recent 2 week history of cocaine and opiates Hx Tobacco Use: Yes Smoking Status (MU): Current Every Day Smoker Type: Cigarettes Length of Time of Smoking/Using Tobacco: >1 ppd Review of Systems Constitutional: Negative Negative: Fever, Chills Eyes: Negative Negative: Photophobia, Blurred Vision, Diplopia ENT: Negative Negative: Dental Pain, Sore Throat, Ear Ache, Nasal Discharge Cardiovascular: Negative Negative: Chest Pain Respiratory: Negative Negative: Shortness Of Breath Gastrointestinal: Negative Negative: Abdominal Pain, Vomiting, Diarrhea, Nausea Negative: burning, dysuria, discharge, frequency, flank pain Musculoskeletal: Other - chronic arthritis pain - tx's w/ daily naprosyn Skin: Negative Neurological: Negative Positive: Depressed - see HPI - denies SI/HI All Other Systems Reviewed And Are Negative: Yes Physical Exam Triage Information Reviewed: Yes Vital Signs On Initial Exam: Initial Vitals Temp Pulse Resp BP Pulse Ox 97.6 F 75 17 102/52 100 04/28/17 11:42 04/28/17 11:42 04/28/17 11:42 04/28/17 11:42 04/28/17 11:42 Vital Signs Reviewed: Yes Appearance: Positive: Well-Appearing, No Pain Distress, Well-Nourished Skin: Positive: Warm, Dry Head/Face: Positive: Normal Head/Face Inspection Eyes: Positive: Normal, EOMI, Conjunctiva Clear - anicteric sclera ENT: Positive: Normal ENT inspection, Hearing grossly normal. Negative: Nasal congestion, Nasal drainage Neck: Positive: Supple Respiratory/Lung Sounds: Positive: Breath Sounds Present Cardiovascular: Positive: Normal Abdomen Description: Positive: Soft Musculoskeletal: Positive: Normal, Strength/ROM Intact Neurological: Positive: Normal, Sensory/Motor Intact, Alert, Oriented to Person Place, Time, CN Intact II-III Psychiatric: Positive: Normal - pleasant, denies SI Diagnostics - Vital Signs Vital Signs Temp Pulse Resp BP Pulse Ox 04/28/17 11:51 97.9 F 65 18 93/50 97 04/28/17 11:42 97.6 F 75 17 102/52 100 - Laboratory Result Diagrams: 04/28/17 12:51 04/28/17 12:51 Lab Statement: Any lab studies that have been ordered have been reviewed, and results considered in the medical decision making process. Course/Dx - Course Course Of Treatment: Pt here for medical screening to gain possible admission to detox facility in [facility]. Results faxed and pt to call for phone screening. - Diagnoses Provider Diagnoses: Encounter for medical screening examination, Heroin dependence, Hypokalemia Discharge - Discharge Plan Condition: Stable Disposition: HOME Patient Education Materials: Hypokalemia (ED), Narcotic Abuse (ED), Cocaine Abuse (ED) Referrals: Non Staff,Doctor [Primary Care Provider] - Additional Instructions: Your potassium is slightly low - you were provided with an oral supplement however this may be maintained with foods rich in potassium, fluids (ie, juices , gatorade, etc). See educational handout for more information. Follow-up with detox facility as planned - call today for phone screening - labs and ECG faxed to [facility] in [facility] *If you develop vomiting, chest pain, dehydration, shortness of breath, excessive diarrhea, suicidal ideations, return to ED
[2017-04-28 13:10] LABS: Hematocrit 35 % (35-47); Hemoglobin 11.5 g/dl (12.0-16.0); Mean Corpuscular HGB Conc 33 g/dl (31-36); Mean Corpuscular Hemoglobin 29 pg (27-31); Mean Corpuscular Volume 88 fL (80-97); Mean Platelet Volume 8 um3 (7.4-10.4); Red Blood Count 3.96 10^6/ul (4.0-5.4); Red Cell Distribution Width 15 % (10.5-15); White Blood Count 5.5 10^3/ul (3.5-10.8)
[2017-04-28 13:23] LABS: Albumin 3.3 g/dL (3.2-5.2); BUN/Creatinine Ratio 23.1 (8-20); Calcium 8.9 mg/dL (8.6-10.3); EGFR African American 103.7 (>60); EGFR Non-African American 80.6 (>60); Globulin 3.2 g/dL (2-4); Potassium 3.3 mmol/L (3.5-5.0); Total Bilirubin 0.2 mg/dL (0.2-1.0); Total Protein 6.5 g/dL (6.4-8.9)
[2017-04-28] MEDS ORDERED: Potassium Chlor TAB* 20 MEQ TAB.ER PO ONE (13:39)
== END 2017-04-28 15:13 | disposition home or self-care (01) ==
LOC: ED 11:16
DX: Z13.89 Encounter for screening for other disorder (principal); F11.20 Opioid dependence, uncomplicated; E87.6 Hypokalemia; F17.210 Nicotine dependence, cigarettes, uncomplicated; B19.20 Unspecified viral hepatitis C without hepatic coma; A69.23 Arthritis due to Lyme disease
CPT/HCPCS: 36415; 80053; 85025; 86703; 93005; 99282; A9270-GY

== ENCOUNTER 2017-05-24 20:54 | Emergency (ER) | payer MEDICAID ==
--- NOTE | 2017-05-24 22:18 | ED ---
Letty Espinoza Thomas, scribed for Chavo Novak MD on 05/24/17 at 2123 . Substance Abuse/Use - HPI Summary HPI Summary: The patient is a 41 y/o F BIBA with a heroin overdose. She was given 2.8 mg of Naloxone DIRECTOR DERMATOLOGY. She has a Hx of overdoses. She is alert and oriented x3. When asked what time she overdosed, she is unsure. She denies any abscesses. - History Of Current Complaint Chief Complaint: EDOverdose Stated Complaint: OVERDOSE Time Seen by Provider: 05/24/17 21:12 Hx Obtained From: Patient Hx Last Menstrual Period: 03/28/14 Ingestion History: Type/Name Of Drug - Heroin, Approximate Time Of Ingestion - unknown Severity Currently: None Aggravating Factor(s): Other - Unknown Alleviating Factor(s): Medication - Naloxone Associated Signs And Symptoms: Other: - NEGATIVE: abscesses Related Hx: Prior Drug Abuse Counseling/Admission - Allergies/Home Medications Allergies/Adverse Reactions: Allergies Allergy/AdvReac Type Severity Reaction Status Date / Time No Known Allergies Allergy Verified 03/09/17 13:40 PMH/Surg Hx/FS Hx/Imm Hx Previously Healthy: No Endocrine/Hematology History: Denies: Hx Anticoagulant Therapy, Hx Diabetes, Hx Thyroid Disease Cardiovascular History: Denies: Hx Hypertension Respiratory History: Reports: Hx Chronic Obstructive Pulmonary Disease (COPD) - advair, atrovent, albuterol, nebulizer tx's PRN, Hx Seasonal Allergies - claritin -D Denies: Hx Asthma GI History: Reports: Hx Gastroesophageal Reflux Disease, Other GI Disorders - Hep C - untx'd Denies: Hx Ulcer History: Reports: Other Problems/Disorders - Uretal stone removed 02/23/13 during cystoscopy Musculoskeletal History: Reports: 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 Sensory History: Denies: Hx Contacts or Glasses, Hx Hearing Aid Opthamlomology History: Denies: Hx Contacts or Glasses Neurological History: Reports: Hx Headaches, Other Neuro Impairments/Disorders - Hx depression Psychiatric History: Reports: Hx Depression, Hx Inpatient Treatment, Hx Community Mental Health Tx, Hx Suicide Attempt, Hx Substance Abuse - heroine, cocaine Denies: Hx Eating Disorder - Surgical History Surgery Procedure, Year, and Place: twin delivery 1998, Infectious Disease History: Yes Infectious Disease History: Reports: Hx Hepatitis - Hep C, Hx of Known/ Suspected MRSA - leg infection 2009 Denies: Hx Clostridium Difficile, Hx Human Immunodeficiency Virus (HIV), Hx Shingles, Hx Tuberculosis, Traveled Outside the [place] in Last 30 Days - Family History Known Family History: Negative: Cardiac Disease, Hypertension, Diabetes - Social History Alcohol Use: Rare Hx Substance Use: Yes Substance Use Type: Reports: Cocaine, Heroin Substance Use Comment - Amount & Last Used: patient reports recent 2 week history of cocaine and opiates Hx Tobacco Use: Yes Smoking Status (MU): Current Every Day Smoker Type: Cigarettes Length of Time of Smoking/Using Tobacco: >1 ppd Review of Systems Negative: Fever Negative: Other - NEGATIVE: abscesses Positive: Other - Heroin overdose All Other Systems Reviewed And Are Negative: Yes Physical Exam Triage Information Reviewed: Yes Vital Signs On Initial Exam: Initial Vitals Temp Pulse Resp BP Pulse Ox 98.2 F 78 14 118/61 95 05/24/17 21:14 05/24/17 21:14 05/24/17 21:14 05/24/17 21:14 05/24/17 21:14 Vital Signs Reviewed: Yes Appearance: Positive: Well-Appearing, No Pain Distress Skin: Positive: Warm, Skin Color Reflects Adequate Perfusion, Dry Head/Face: Positive: Normal Head/Face Inspection Eyes: Positive: Normal ENT: Positive: Normal ENT inspection Neck: Positive: Supple, Nontender Respiratory/Lung Sounds: Positive: Clear to Auscultation, Breath Sounds Present Cardiovascular: Positive: RRR Abdomen Description: Positive: Nontender, Soft Bowel Sounds: Positive: Present Musculoskeletal: Positive: Normal Neurological: Positive: Normal Psychiatric: Positive: Normal, Affect/Mood Appropriate Diagnostics - Vital Signs Vital Signs Temp Pulse Resp BP Pulse Ox 05/24/17 21:14 98.2 F 78 14 118/61 95 - Laboratory Lab Statement: Any lab studies that have been ordered have been reviewed, and results considered in the medical decision making process. Course/Dx - Course Course Of Treatment: Ms. Flores shot up heroin tonight and was given Narcan in the rig. She is being observed here until the Narcan has worn off. She has been counseled. - Diagnoses Provider Diagnoses: Heroin overdose Discharge - Discharge Plan Condition: Stable Disposition: HOME Patient Education Materials: Narcotic Abuse (ED) Referrals: [facility] [Outside] - 3 Days Additional Instructions: IF YOU KEEP USING HEROIN, YOU ARE PROBABLY GOING TO . The documentation as recorded by the scribLetty jacobsen Thomas accurately reflects the service I personally performed and the decisions made by me, Chavo Novak MD.
[2017-05-25 01:17] VITALS: BP 109/74
== END 2017-05-25 01:16 | disposition home or self-care (01) ==
LOC: ED 20:54
DX: T40.1X1A Poisoning by heroin, accidental (unintentional), initial encounter (principal); F17.210 Nicotine dependence, cigarettes, uncomplicated
CPT/HCPCS: 99284

== ENCOUNTER 2017-12-06 15:26 | Emergency (ER) | payer MEDICAID, OTHER ==
[2017-12-06 17:03] LABS: ABS Basophils 0.1 10^3/ul (0-0.2); ABS Eosinophils 0 10^3/ul (0-0.6); ABS Lymphocytes 0.8 10^3/ul (1.0-4.8); ABS Monocytes 1.3 10^3/ul (0-0.8); ABS Neutrophils 19.2 10^3/ul (1.5-7.7); ABS Nucleated RBC 0 10^3/ul; Eosinophil % 0 % (0-6); Hematocrit 36 % (35-47); Lymphocyte % 3.7 % (25-47); Mean Corpuscular HGB Conc 33 g/dl (31-36); Mean Corpuscular Hemoglobin 31 pg (27-31); Mean Corpuscular Volume 92 fL (80-97); Mean Platelet Volume 8.3 um3 (7.4-10.4); Nucleated Red Blood Cells % 0.1; Platelet Count 250 10^3/ul (150-450); Red Blood Count 3.89 10^6/ul (4.0-5.4); Red Cell Distribution Width 14 % (10.5-15); White Blood Count 21.4 10^3/ul (3.5-10.8)
[2017-12-06] MEDS ORDERED: Albuterol/Ipratropium NEB.SOL* Albuterol 2.5 MG/Ipratropium 0.5 MG 3 ML INH ONE (17:19)
[2017-12-06 17:21] LABS: EGFR Non-African American 12.7 (>60)
[2017-12-06] MEDS ORDERED: methylPREDNISolone 125 MG* 2 ML VIAL IV ONE (17:21)
[2017-12-06] MEDS ORDERED: NS 0.9% 1000 ML* 2,000 ML IV ONE (17:28)
[2017-12-06] MEDS ORDERED: Dextrose 50% Syringe 50 ML* 25 GM/50 ML SYRINGE IV PUSH ONE (17:30)
[2017-12-06] MEDS ORDERED: Insulin REGULAR(*) 1 UNITS UNIT IV PUSH ONE (17:31)
--- NOTE | 2017-12-06 17:35 | RAD ---
Indication: Shortness of breath. Single frontal view of the chest performed at 1729 hours was reviewed. Comparison is made with previous exam dated February 07, 2012. No mediastinal shift is noted. No cardiomegaly is noted. Peribronchial thickening with interstitial edema is noted consistent with vascular congestion. No pleural fluid is identified. IMPRESSION: Findings suspicious for vascular congestion. Peribronchial thickening is noted.
[2017-12-06 17:59] LABS: INR 0.98 (0.77-1.02)
[2017-12-06] MEDS ORDERED: Sodium Polystyrene ORAL.SOL* 15 GM/60 ML BTL PO ONE (18:00)
[2017-12-06] MEDS ORDERED: Sodium Bicarbonate 8.4% IV* 50 MEQ in NS 0.9% 1000 ML* 1,000 ML IV SCH (18:00)
[2017-12-06] MEDS ORDERED: Calcium Gluconate INJ* 2 GM in NS 0.9% 100 ML* 100 ML IVPB ONE (18:00)
[2017-12-06] MEDS ORDERED: NS 0.9% 1000 ML* 1,000 ML IV ONE (18:10)
[2017-12-06] MEDS ORDERED: Sodium Bicarbonate 8.4% IV* 50 ML VIAL ONE (18:14)
[2017-12-06] MEDS ORDERED: Acetaminophen TAB* 325 MG PO PRN (18:23)
[2017-12-06] MEDS ORDERED: Albuterol/Ipratropium NEB.SOL* Albuterol 2.5 MG/Ipratropium 0.5 MG 3 ML INH PRN (18:23)
--- NOTE | 2017-12-06 18:24 | ED ---
Leo Espinoza Angela, scribed for Oliverio Yap on 12/06/17 at 1724 . Psychiatric Complaint - HPI Summary HPI Summary: This pt is a 42 y/o female presenting to [facility] via EMS for an evaluation. Pt reports she was sent by her parole office for an "evaluation." She states she is unsure what kind of evaluation she needs. Pt notes she "lost" her memory for a few days and is unable to recall some details. Denies depression, SI, HI. PMHx includes COPD, depression, SI. Pt reports chronic SOB from her COPD. Denies any drug use today. - History Of Current Complaint Chief Complaint: EDGeneral Time Seen by Provider: 12/06/17 16:07 Hx Obtained From: Patient Hx Last Menstrual Period: 03/28/14 Onset/Duration: Still Present Timing: Constant Severity Currently: None Aggravating Factor(s): Nothing Alleviating Factor(s): Nothing Associated Signs And Symptoms: Positive: Negative Has Suicidal: Denies: Thoughts, With A Plan Has Homicidal: Denies: Thoughts, With A Plan - Allergies/Home Medications Allergies/Adverse Reactions: Allergies Allergy/AdvReac Type Severity Reaction Status Date / Time No Known Allergies Allergy Verified 12/06/17 16:00 Home Medications: Home Medications Albuterol HFA INHALER* [Ventolin HFA Inhaler*] 2 puff INH Q4H PRN 12/06/17 [ History Confirmed 12/06/17] BuPROPion XL* [Bupropion XL*] 300 mg PO DAILY 12/06/17 [History Confirmed ] Buprenorphine HCl/Naloxone HCl [Suboxone] 1 mis SL BID 12/06/17 [History Confirmed 12/06/17] Gabapentin CAP(*) [Neurontin 400 mg CAP(*)] 800 mg PO TID 12/06/17 [History Confirmed 12/06/17] Naproxen TAB* [Naprosyn 375 mg TAB*] 500 mg PO BID 12/06/17 [History Confirmed 12/06/17] Prazosin CAP* [Minipress CAP*] 1 - 2 mg PO BID 12/06/17 [History Confirmed 12/06] Venlafaxine EXT RELEASE CAP* [Effexor Xr CAP*] 75 mg PO TID 12/06/17 [History Confirmed 12/06/17] traZODone TAB* [Desyrel TAB*] 200 mg PO BEDTIME PRN 12/06/17 [History Confirmed 12/06/17] PMH/Surg Hx/FS Hx/Imm Hx Endocrine/Hematology History: Denies: Hx Anticoagulant Therapy, Hx Diabetes, Hx Thyroid Disease Cardiovascular History: Denies: Hx Hypertension Respiratory History: Reports: Hx Chronic Obstructive Pulmonary Disease (COPD) - advair, atrovent, albuterol, nebulizer tx's PRN, Hx Seasonal Allergies - claritin -D Denies: Hx Asthma GI History: Reports: Hx Gastroesophageal Reflux Disease, Other GI Disorders - Hep C - untx'd Denies: Hx Ulcer History: Reports: Other Problems/Disorders - Uretal stone removed 02/23/13 during cystoscopy Musculoskeletal History: Reports: 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 Sensory History: Denies: Hx Contacts or Glasses, Hx Hearing Aid Opthamlomology History: Denies: Hx Contacts or Glasses Neurological History: Reports: Hx Headaches, Other Neuro Impairments/Disorders - Hx depression Psychiatric History: Reports: Hx Depression, Hx Inpatient Treatment, Hx Community Mental Health Tx, Hx Suicide Attempt, Hx Substance Abuse - heroine, cocaine Denies: Hx Eating Disorder - Surgical History Surgery Procedure, Year, and Place: twin delivery 1998, Infectious Disease History: Yes Infectious Disease History: Reports: Hx Hepatitis - Hep C, Hx of Known/ Suspected MRSA - leg infection 2009 Denies: Hx Clostridium Difficile, Hx Human Immunodeficiency Virus (HIV), Hx Shingles, Hx Tuberculosis, Traveled Outside the [place] in Last 30 Days - Family History Known Family History: Negative: Cardiac Disease, Hypertension, Diabetes - Social History Alcohol Use: None Hx Substance Use: Yes Substance Use Type: Reports: Cocaine, Heroin, Prescribed Substance Use Comment - Amount & Last Used: states clean for 6 months Hx Tobacco Use: Yes Smoking Status (MU): Current Every Day Smoker Type: Cigarettes Length of Time of Smoking/Using Tobacco: >1 ppd Review of Systems Negative: Fever, Chills Eyes: Negative ENT: Negative Positive: Shortness Of Breath - chronic Gastrointestinal: Negative Genitourinary: Negative Musculoskeletal: Negative Negative: Depressed, Other - SI, HI All Other Systems Reviewed And Are Negative: Yes Physical Exam - Summary Physical Exam Summary: Appearance: Well appearing, no pain distress Skin: warm, dry. Bruising in bilateral thighs. Head/face: normal Eyes: EOMI, WINNIE ENT: normal Neck: supple, nontender Respiratory: CTA, breath sounds present Cardiovascular: RRR, pulses symmetrical Abdomen: nontender, soft Bowel: present Musculoskeletal: normal, strength/ROM intact Neuro: normal, sensory motor intact, A&Ox3 Psych: depressed on examination Triage Information Reviewed: Yes Vital Signs On Initial Exam: Initial Vitals Temp Pulse Resp BP Pulse Ox 99.6 F 87 16 123/86 83 12/06/17 15:28 12/06/17 15:28 12/06/17 15:28 12/06/17 15:28 12/06/17 15:28 Vital Signs Reviewed: Yes Diagnostics - Vital Signs Vital Signs Temp Pulse Resp BP Pulse Ox 12/06/17 15:28 99.6 F 87 16 123/86 83 - Laboratory Lab Results: Lab Results 12/06/17 12/06/17 Range/Units 16:40 16:40 WBC 21.4 H (3.5-10.8) 10^3/ul RBC 3.89 L (4.0-5.4) 10^6/ul Hgb 12.0 (12.0-16.0) g/dl Hct 36 (35-47) % MCV 92 (80-97) fL MCH 31 (27-31) pg MCHC 33 (31-36) g/dl RDW 14 (10.5-15) % Plt Count 250 (150-450) 10^3/ul MPV 8.3 (7.4-10.4) um3 Neut % (Auto) 89.7 H (38-83) % Lymph % (Auto) 3.7 L (25-47) % [place] % (Auto) 6.3 (0-7) % Eos % (Auto) 0 (0-6) % Baso % (Auto) 0.3 (0-2) % Absolute Neuts (auto) 19.2 H (1.5-7.7) 10^3/ul Absolute Lymphs (auto) 0.8 L (1.0-4.8) 10^3/ul Absolute Monos (auto) 1.3 H (0-0.8) 10^3/ul Absolute Eos (auto) 0 (0-0.6) 10^3/ul Absolute Basos (auto) 0.1 (0-0.2) 10^3/ul Absolute Nucleated RBC 0 10^3/ul Nucleated RBC % 0.1 Lactic Acid 1.9 (0.5-2.0) mmol/L Result Diagrams: 12/06/17 16:40 12/06/17 16:40 Lab Statement: Any lab studies that have been ordered have been reviewed, and results considered in the medical decision making process. - Radiology Chest XR Xray Interpretation: Positive (See Comments) - IMPRESSION: Findings suspicious for vascular congestion. Peribronchial thickening is noted. Dr. Yap has reviewed this radiology report. Radiology Interpretation Completed By: Radiologist - EKG 17:31 Cardiac Rate: NL EKG Rhythm: Sinus Rhythm - at 88 bpm EKG Interpretation: No acute changes. Re-Evaluation - Re-Evaluation First Eval Re-Evaluation Time: 17:32 Comment: Pt was able to give more history. She states she was prescribed 3 doses of suboxone 2 days ago. She reports she went to sleep that night. Pt does not remember anything from yesterday. She woke up this morning and does not remember what happened. Her 3 doses of suboxone went missing, but does not remember taking them. seaman officer sent her to the ED for a drug evaluation. Course/Dx - Course Assessment/Plan: This pt is a 42 y/o female presenting to [facility] via EMS for an evaluation. She states she was prescribed 3 doses of suboxone two days ago and now they are missing. She reports she went to sleep that night, Monday and does not remember anything from yesterday. seaman officer sent her to the ED for a drug evaluation. Blood work, chest XR, and EKG were obtained. In the ED course the pt was given IV fluids, dextrose, duoneb, solu-Medrol, insulin, and sodium bicarbonate for elevated potassium of 6.3. I discussed pt care with Dr. Dominguez, hospitalist, who has agreed to admit the pt. - Differential Dx/Clinical Impression Differential Diagnosis/HQI/PQRI: Positive: Anxiety, Depression, Drug Overdose/ Intentional, Other - renal failure/hyperkalemia/rhabdomyolysis Provider Diagnosis: Substance abuse, Acute renal failure, Hyperkalemia, Hypoxia, COPD exacerbation - Physician Notifications Discussed Care Of Patient With: Kameron Dominguez Time Discussed With Above Provider: 17:39 Instructed by Provider To: Other - I discussed pt care with Dr. Dominguez, hospitalist, who has agreed to admit the pt. - Critical Care Time Critical Care Time: 75-104 min - 30 minutes Discharge - Sign-Out/Discharge Documenting (check all that apply): Discharge/Admit/Transfer - admit to [facility] - Discharge Plan Condition: Stable Disposition: ADMITTED TO [facility] Referrals: No Primary Care Phys,NOPCP [Primary Care Provider] - - Billing Disposition and Condition Condition: STABLE Disposition: HOSP-[facility] The documentation as recorded by the Leo lowery Angela accurately reflects the service I personally performed and the decisions made by Fracisco zavaleta Emmanuel.
[2017-12-06 18:26] LABS: Urine Appearance Cloudy; Urine Blood 3+ (Negative); Urine Color Yellow; Urine Ketones Negative (Negative); Urine Protein 1+(30 mg/dL) (Negative); Urine Specific Gravity 1.013 (1.010-1.030); Urine Urobilinogen Negative (Negative)
[2017-12-06] MEDS ORDERED: Piperacillin/Tazobac ADVAN(*) 3.375 GM in NS 0.9% 100 ML* 100 ML IVPB ONE (18:30)
[2017-12-06] MEDS ORDERED: Albuterol HFA INHALER* 8 gm MDI INH PRN (18:42)
[2017-12-06] MEDS ORDERED: Sodium Bicarbonate 8.4%* 50 ML SYRINGE IV ONE (19:00)
[2017-12-06] MEDS ORDERED: Zosyn per Pharmacy* NOTE FOLLOW UP SCH (19:00)
[2017-12-06] MEDS ORDERED: Etomidate* 2 MG/ML 10 ML VIAL IV ONE (19:47)
[2017-12-06] MEDS ORDERED: Vancomycin(*) 1,250 MG in NS 0.9% 250 ML* 250 ML IVPB ONE (19:47)
[2017-12-06] MEDS ORDERED: Succinylcholine* 20 MG/ML 10 ML VIAL IV ONE (19:47)
[2017-12-06] MEDS ORDERED: Rocuronium* 10 MG/ML VIAL ONE (20:20)
[2017-12-06] MEDS ORDERED: Etomidate* 2 MG/ML 20 ML VIAL (40 MG) ONE ×2 (20:20→20:27)
[2017-12-06 20:42] LABS: EGFR Non-African American 12.3 (>60)
[2017-12-06] MEDS ORDERED: Midazolam* 1 MG/ML 5 ML VIAL (5 MG) ONE (20:43)
[2017-12-06] MEDS ORDERED: Midazolam BAG 1 MG/ML* 100 MG/100 ML BAG IV ONE (20:48)
[2017-12-06] MEDS ORDERED: Albuterol 2.5 MG/3 ML NEB.SOL* (0.083%) INH ONE (20:50)
[2017-12-06] MEDS ORDERED: Albuterol 2.5 MG/3 ML NEB.SOL* (0.083%) ONE (20:51)
[2017-12-06] MEDS ORDERED: Gabapentin CAP(*) 400 MG PO SCH (21:00)
[2017-12-06] MEDS ORDERED: Venlafaxine EXT RELEASE CAP* 75 MG PO SCH (21:00)
[2017-12-06] MEDS ORDERED: Docusate CAP* 100 MG PO SCH (21:00)
[2017-12-06] MEDS ORDERED: Midazolam IV for DRIP* 100 MG in NS 0.9% 100 ML* 80 ML IV SCH (21:00)
[2017-12-06] MEDS ORDERED: fentaNYL* 50 MCG/ML 2 ML VIAL (100 MCG VIAL) ONE (21:04)
[2017-12-06] MEDS ORDERED: fentaNYL* 50 MCG/ML 2 ML VIAL (100 MCG VIAL) IV SLOW PU ONE (21:05)
[2017-12-06] MEDS ORDERED: Midazolam* 1 MG/ML 5 ML VIAL (5 MG) SLOW PUSH ONE (21:21)
--- NOTE | 2017-12-06 21:40 | RAD ---
Indication: Respiratory failure. Single frontal view of the chest performed at 1942 hours was reviewed. Comparison is made with previous exam dated December 06, 2017. ET tube is at the level of T2-T3. Right basilar and left perihilar infiltrates are progressive since previous exam done earlier the same date. Nasogastric tube is in place. IMPRESSION: ET TUBE AT T3 LEVEL. RIGHT LOWER LOBE AND LEFT PERIHILAR INFILTRATES ARE NOTED WHICH ARE PROGRESSIVE.
[2017-12-06 21:50] VITALS: BP 128/87
--- NOTE | 2017-12-06 21:52 | HP ---
CC: Dr. Jennifer Moreira, [facility] in [place]; Dr. Le* HISTORY AND PHYSICAL: DATE OF ADMISSION: 12/06/17 PRIMARY CARE PROVIDER: None. PSYCHIATRIST: Dr. Le. CHIEF COMPLAINT: Generalized weakness. HISTORY OF PRESENT ILLNESS: Kristin Flores is a 42-year-old female with a history of polysubstance abuse as well as hepatitis C, depression, PTSD, Lyme disease, and MRSA cellulitis in the past, who presented to the hospital after she woke up on the floor of the room that she is having her temporary housing in. She now is staying in [facility]. The patient stated that she was in halfway for 6 months from May 2017 to October of 2017. After she got out of halfway, she is right now on parole. She is applying for low income housing and during this time, she was placed in [facility] [employer] [facility] [facility] by the social media coordinator. She stated that although she had not use any narcotics ever since her incarceration , she had been having "cravings" and due to that, she went to see doctor at the [facility] [place]. She got a prescription for 3 doses of Suboxone and she stated that she must have taken them on Monday night. She woke up 2 days later thinking that it was the next day morning. She was so weak and "every thing hurt" that she could just crawl up to the telephone and call for her friend, who lives next door. At that point, the friend called 911 and the patient was brought to the hospital. She was noted to have acute renal failure and likely rhabdomyolysis. Her CPK levels are still pending. She is going to be admitted to the intensive care unit due to hyperkalemia and hypoxemia. PAST MEDICAL HISTORY: 1. History of polysubstance abuse including IV drug use. 2. History of depression. 3. History of PTSD. 4. History of hepatitic C. 5. History of MRSA cellulitis. 6. History of Lyme disease. 7. History of nephrolithiasis in 2012 and sepsis due to that. CURRENT MEDICATIONS: Include: 1. Prazosin 1 to 2 mg b.i.d. 2. Naproxen 500 mg b.i.d. 3. Trazodone 200 mg at bedtime p.r.n. 4. Effexor XR 75 mg 3 times a day. 5. Bupropion XL 300 mg daily. 6. Albuterol inhaler on a p.r.n. basis. 7. Gabapentin 800 mg 3 times a day. 8. Suboxone as instructed. ALLERGIES: No known drug allergies. FAMILY HISTORY: Reviewed and noncontributory. SOCIAL HISTORY: The patient is single, lives in [facility]. She smokes less than a pack a day and she started when she was a teenager. She denies any alcohol or current drug use. The last drug use was over 6 months ago. As her surrogate, she mentions her daughter, Rae Flores. REVIEW OF SYSTEMS: Positive for "everything hurts." Positive for mild confusion. Positive for that the patient woke up thinking that it was Monday morning, but in fact, she apparently was lying on the floor for 48 hours. The patient stated that she does not remember taking Suboxone, but "she must to have " since she could not find Suboxone when she woke up. She also thinks that it is possible that someone stole from her. All the remaining 12 systems were reviewed with the patient, who is not the greatest historian at this point and were negative. PHYSICAL EXAMINATION GENERAL: The patient is a very pleasant 42-year-old female, who is in no acute distress. The patient is alert and oriented x2. She still has problems with her time orientation. VITAL SIGNS: Blood pressure of 123/86, heart rate of 87 and regular, respiratory rate 16, oxygen saturation 92% on 4 L of oxygen via nasal cannula, temperature 99.6. HEENT: Head atraumatic, normocephalic. Eyes: Pupils are equal and reactive to light and accommodation. Oropharynx clear. Mucosa moist. NECK: Supple. No JVD. No bruits bilaterally. RESPIRATORY: Coarse breath sounds in bilateral bases. CARDIOVASCULAR: Regular rate and rhythm. No murmur. ABDOMEN: Soft, nontender. Bowel sounds present in all 4 quadrants. No CVA tenderness on evaluation. EXTREMITIES: There is no edema. Pulses +2 bilaterally. No clubbing or cyanosis. SKIN: On evaluation of the skin, the patient has multiple ecchymotic areas in various stages of resolution, but they appear rather fresh probably within the past 24 to 48 hours on her anterior upper thighs below the knees. She has superficial abrasions on bilateral knees. NEUROLOGIC: On neuro evaluation, speech clear. Cranial nerves II through XII grossly intact. Motor strength is 5/5 bilaterally. DIAGNOSTIC STUDIES/LABORATORY DATA: Laboratory data and studies performed today included: White blood cell count of 21.4, hemoglobin of 12.0, hematocrit of 36, and platelets of 250. ABG showed pH of 7.36, pCO2 of 27, pO2 of 44, bicarb of 17. Sodium was 132, potassium 6.3, chloride 99, carbon dioxide 21, anion gap of 12, BUN 110, creatinine of 3.8. AST of 2740, ALT of 774. Alkaline phosphatase of 68, troponin of 1.54. The patient's CPK is pending at the time of admission. Brain natriuretic peptide was 790. TSH of 2.8. Beta-hCG was below detectable. Urine drug screen was negative. The patient's EKG showed normal sinus rhythm with a heart rate of 80 beats per minute with peaked T waves in the anterior leads. Portable chest x-ray, findings suspicious for vascular congestion. Peribronchial thickening is noted. The patient's urinalysis is pending at the time of the dictation. ASSESSMENT AND PLAN: 1. At this point, the patient has acute renal failure and hyperkalemia with a creatinine of 3.84 and potassium was 6.3. She has mildly peaked T waves, which I do not believe that it is due to hyperacute T waves. It appears to be due to hyperkalemia. The patient denies any chest pain. She was treated with insulin , calcium, and Kayexalate in the emergency department. She is going to be admitted to the intensive care unit for further treatment and monitoring. 2. The patient's acute renal failure is likely due to rhabdomyolysis. The patient's CPKs are still being diluted by the lab and have not been resulted yet. At this point, the patient is going to be placed on intravenous fluids at 175 mL per hour. She already received a total of 3 L in the emergency department. I will follow up with her CPKs in the morning. I suspect her LFT elevation is also likely due to rhabdomyolysis. 3. For history of depression and posttraumatic stress disorder, her antidepressants are going to be continued as previously taken. 4. In regards to her history of opioid addiction and cravings, at this point, Suboxone is going to be discontinued. I will try to see if a person from the [email or web address] will be available to come in and talk with the patient. 5. Hypoxemia. Although the patient's D-dimer is elevated at 499, the patient denies any chest pain and has no tachycardia. I suspect she is hypoxemic due to aspiration. She also has leukocytosis. At this point, I will place the patient on Zosyn for possible aspiration pneumonia. Lab cultures are going to be obtained, although they have not been yet in the emergency department. 6. For DVT prophylaxis, the patient is ambulatory, but due to her elevated D- dimer that she is going to be in intensive care unit, I will place her on heparin subcutaneously. 7. The patient's code status is full and her surrogate is her daughter. TIME SPENT: Approximately 72 minutes were spent on admission of the patient, more than half that time was spent [id number] with the patient during the interview and physical exam. [id number]/CPS #: [id number] MTDD
[2017-12-06] MEDS ORDERED: Heparin VIAL(*) 5000 UNITS/ML VIAL (FIVE THOUSAND) SUBCUT SCH (22:00)
[2017-12-07] MEDS ORDERED: ZOSYN 3.375 GM Q12H per EXTENDED INFUSION IVPB SCH ×2 (00:45)
[2017-12-07] MEDS ORDERED: BuPROPion XL* 300 MG TAB.XL PO SCH (09:00)
--- NOTE | 2017-12-07 13:35 | ED ---
Urbano Espinoza Nilda, nicoed for Alejandro Aj MD on 12/06/17 at 2001 . Progress - Progress Note Progress Note: Pt in respiratory distress while awaiting bed for ICU admission. [20:01] Discussed case with Dr. Ruiz (hospitalist) who states pt was passed out for two days possibly due to drugs, suboxones or possible co-ingestions. It is suspected that elevated trop related to rhabdomyolysis. Progress note: Intubation-- Video laryngoscope, etomidate and rocuronium. 7.5 endotracheal tube visualized going through the chords. Equal breath sounds. Negative epigastric sounds. Re-Evaluation - Re-Evaluation First Eval Re-Evaluation Time: 20:34 Comment: Updated son on mother's condition. Second Eval Re-Evaluation Time: 20:52 Comment: Updated kids on transfer plan. Third Eval Re-Evaluation Time: 21:48 Comment: appears comfortable on the bed Course/Dx - Course Course Of Treatment: Pt will be transfered to [facility] because there are no ICU bed open here. - Diagnoses Provider Diagnoses: Rhabdomyolysis, Multiple organ failure - Provider Notifications Discussed Care Of Patient With: Rico Baez - Chao duran [facility] Time Discussed With Above Provider: 20:08 Instructed by Provider To: Transfer - accepts pt for transfer to [facility] - Critical Care Time Critical Care Time: 30-74 min - 60 mins Discharge - Sign-Out/Discharge Documenting (check all that apply): Discharge/Admit/Transfer - Discharge Plan Condition: Stable Disposition: TRANS HIGHER LVL OF CARE FAC Discharge Disposition Comment: [facility] Medical Referrals: No Primary Care Phys,NOPCP [Primary Care Provider] - The documentation as recorded by the Urbano lowery Nilda accurately reflects the service I personally performed and the decisions made by , Alejandro Aj MD.
== END 2017-12-06 22:15 | disposition short-term general hospital (02) ==
LOC: ED 15:26
DX: F19.10 Other psychoactive substance abuse, uncomplicated (principal); N17.9 Acute kidney failure, unspecified; E87.5 Hyperkalemia; R09.02 Hypoxemia; J44.1 Chronic obstructive pulmonary disease with (acute) exacerbation; F17.210 Nicotine dependence, cigarettes, uncomplicated
CPT/HCPCS: 36415; 36600; 71045; 80048; 80053; 80307; 80320; 80329; 81003; 81015; 82550; 82803; 83605; 83880; 84443; 84484; 84702; 85025; 85379; 85610; 85730; 87040; 87086; 93005; 94002; 94640; 96361; 96365; 96366; 96367; 96375; 99285; A9270-GY; G0480; J0610; J2250; J2543; J2930; J3010; J3370

== ENCOUNTER 2018-01-05 20:57 | Observation (INO) | payer OTHER ==
[2018-01-05 23:25] LABS: ABS Basophils 0 10^3/ul (0-0.2); ABS Eosinophils 0.2 10^3/ul (0-0.6); ABS Lymphocytes 1.8 10^3/ul (1.0-4.8); ABS Monocytes 0.5 10^3/ul (0-0.8); ABS Neutrophils 1.6 10^3/ul (1.5-7.7); ABS Nucleated RBC 0 10^3/ul; Eosinophil % 4.2 % (0-6); Hematocrit 23 % (35-47); Hemoglobin 7.7 g/dl (12.0-16.0); Lymphocyte % 43.7 % (25-47); Mean Corpuscular HGB Conc 34 g/dl (31-36); Mean Corpuscular Hemoglobin 30 pg (27-31); Mean Corpuscular Volume 90 fL (80-97); Mean Platelet Volume 7.8 um3 (7.4-10.4); Nucleated Red Blood Cells % 0.1; Platelet Count 207 10^3/ul (150-450); Red Blood Count 2.56 10^6/ul (4.0-5.4); Red Cell Distribution Width 14 % (10.5-15); White Blood Count 4.1 10^3/ul (3.5-10.8)
[2018-01-05 23:41] LABS: Urine Appearance Cloudy; Urine Blood Negative (Negative); Urine Color Yellow; Urine Ketones Negative (Negative); Urine Protein Negative (Negative); Urine Specific Gravity 1.014 (1.010-1.030); Urine Urobilinogen Negative (Negative)
[2018-01-05 23:45] LABS: EGFR Non-African American 36.6 (>60)
[2018-01-05] MEDS ORDERED: Levofloxacin TAB* 500 MG PO ONE (23:59)
[2018-01-06] MEDS ORDERED: Albuterol 2.5 MG/3 ML NEB.SOL* (0.083%) INH PRN (00:29)
[2018-01-06] MEDS ORDERED: CMCS:Melatonin (NF) 3 MG TAB PO PRN (00:29)
[2018-01-06] MEDS ORDERED: Ondansetron ODT TAB* 4 MG PO PRN (00:29)
[2018-01-06] MEDS ORDERED: traMADol TAB* 50 MG PO PRN (00:29)
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
[2018-01-06] MEDS: Omeprazole CAP* 20 MG PO SCH (05:26)
--- NOTE | 2018-01-06 08:05 | RAD ---
HISTORY: Shortness of breath COMPARISONS: December 06, 2017 VIEWS: 4: Frontal dual-energy and lateral views of the chest. FINDINGS: CARDIOMEDIASTINAL SILHOUETTE: The cardiomediastinal silhouette is normal. GALDINO: The galdino are normal. PLEURA: The costophrenic angles are sharp. No pleural abnormalities are noted. LUNG PARENCHYMA: The lungs are clear. ABDOMEN: The upper abdomen is clear. There is no subphrenic gas. BONES AND SOFT TISSUES: There is post surgical change to the right shoulder. OTHER: None. IMPRESSION: NO ACTIVE CARDIOPULMONARY DISEASE.
[2018-01-06] MEDS: Docusate CAP* 100 MG PO SCH ×2 (08:15→21:13)
[2018-01-06] MEDS ORDERED: Ondansetron INJ* 2 MG/ML VIAL IV PRN (08:41)
[2018-01-06 09:25] LABS: Corrected Retic Count 0.7 % (0.5-1.5); Hematocrit 28 % (35-47); Hematocrit for Retic CNT 28 % (35-47); Hemoglobin 9.9 g/dl (12.0-16.0); Immature Retic Fraction 0.52; Mean Corpuscular HGB Conc 35 g/dl (31-36); Mean Corpuscular Hemoglobin 31 pg (27-31); Mean Corpuscular Volume 89 fL (80-97); Mean Platelet Volume 7.7 um3 (7.4-10.4); Platelet Count 190 10^3/ul (150-450); RBC Retic Count 3.17 10^6/ul (4.6-6.2); Red Blood Count 3.17 10^6/ul (4.0-5.4); Red Cell Distribution Width 14 % (10.5-15); White Blood Count 4.4 10^3/ul (3.5-10.8)
[2018-01-06] MEDS: Ondansetron 40 MG VIAL* 2 MG/ML 20 ML VIAL IV PRN ×2 (09:52→17:27)
[2018-01-06] MEDS: Acetaminophen TAB* 325 MG PO PRN (09:57)
[2018-01-06] MEDS ORDERED: traZODone TAB* 100 MG PO PRN (11:36)
[2018-01-06] MEDS ORDERED: Albuterol HFA INHALER* 8 gm MDI INH PRN (11:36)
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
[2018-01-06] MEDS: BuPROPion XL* 300 MG TAB.XL PO SCH (12:26)
[2018-01-06] MEDS: Buprenorphine/Naloxone 8-2 MG SL TAB* 1 TAB PO SCH ×2 (13:50→21:12)
[2018-01-06] MEDS: Venlafaxine EXT RELEASE CAP* 75 MG PO SCH ×2 (13:51→21:13)
[2018-01-06] MEDS: Gabapentin CAP(*) 400 MG PO SCH ×2 (13:51→21:10)
[2018-01-06] MEDS: Prazosin CAP* 1 MG PO SCH (21:12)
[2018-01-07] MEDS: Ondansetron 40 MG VIAL* 2 MG/ML 20 ML VIAL IV PRN (03:26)
[2018-01-07] MEDS: Acetaminophen TAB* 325 MG PO PRN (03:33)
[2018-01-07 06:16] LABS: ABS Basophils 0 10^3/ul (0-0.2); ABS Eosinophils 0.1 10^3/ul (0-0.6); ABS Lymphocytes 1.4 10^3/ul (1.0-4.8); ABS Monocytes 0.5 10^3/ul (0-0.8); ABS Neutrophils 1.1 10^3/ul (1.5-7.7); ABS Nucleated RBC 0 10^3/ul; Eosinophil % 4.1 % (0-6); Hematocrit 27 % (35-47); Hemoglobin 9.3 g/dl (12.0-16.0); Lymphocyte % 46.3 % (25-47); Mean Corpuscular HGB Conc 34 g/dl (31-36); Mean Corpuscular Hemoglobin 30 pg (27-31); Mean Corpuscular Volume 90 fL (80-97); Mean Platelet Volume 7.8 um3 (7.4-10.4); Nucleated Red Blood Cells % 0.1; Platelet Count 174 10^3/ul (150-450); Red Blood Count 3.05 10^6/ul (4.0-5.4); Red Cell Distribution Width 14 % (10.5-15); White Blood Count 3.1 10^3/ul (3.5-10.8)
[2018-01-07] MEDS: Omeprazole CAP* 20 MG PO SCH (06:27)
[2018-01-07 06:42] LABS: EGFR Non-African American 43.3 (>60)
[2018-01-07] MEDS ORDERED: Metoclopramide TAB* 10 MG PO PRN (09:33)
--- NOTE | 2018-01-07 09:33 | PN ---
Progress Note - Progress Note Date of Service: 01/07/18 Note: Discharge Progress Note Primary Diagnosis: symptomatic anemia due to acute blood loss Secondary Diagnoses: suspect gastritis w/ hemorrhage chronic active Hep C opiate use d/o acute kidney injury due to rhabdo, resolving PTSD urolithiasis Procedures: none Complications: none Consultants: none Pertinent lab/radiology testing: Creatinine 1.54 down to 1.33 AST 48, then 37 Iron, B12 normal HGB 7.7, up to 9.9 w/ transfusion 2 PRBC, then 9.3 on discharge Tests pending upon discharge: FOBT ordered, not collected
[2018-01-07] MEDS ORDERED: Ondansetron ODT TAB* 4 MG SL PRN (09:35)
[2018-01-07] MEDS: BuPROPion XL* 300 MG TAB.XL PO SCH (09:41)
[2018-01-07] MEDS: Buprenorphine/Naloxone 8-2 MG SL TAB* 1 TAB PO SCH (09:41)
[2018-01-07] MEDS: Prazosin CAP* 1 MG PO SCH (09:41)
[2018-01-07] MEDS: Gabapentin CAP(*) 400 MG PO SCH (09:42)
[2018-01-07] MEDS: Docusate CAP* 100 MG PO SCH (09:43)
[2018-01-07] MEDS: Venlafaxine EXT RELEASE CAP* 75 MG PO SCH (09:45)
[2018-01-07 10:00] VITALS: BP 113/62
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
== END 2018-01-07 10:30 | disposition home or self-care (01) ==
LOC: ED 20:57 → MED 01-06 00:27
PROVIDERS: ADMIT Hospitalist; ATTEND Internal Medicine
DX: D64.9 Anemia, unspecified (principal); F11.94 Opioid use, unspecified with opioid-induced mood disorder; R11.0 Nausea; R53.83 Other fatigue; L50.9 Urticaria, unspecified; F19.10 Other psychoactive substance abuse, uncomplicated
CPT/HCPCS: 36415; 36430; 71045; 80053; 80307; 80320; 81003; 81015; 82607; 82728; 82746; 83540; 83550; 83615; 84443; 84702; 85025; 85027; 85045; 86850; 86900; 86901; 86922; 87086; 96374; 96375; 99285; A9270-GY; G0378; G0480; J2405; P9040

== ENCOUNTER 2018-03-30 13:42 | Emergency (ER) | payer OTHER ==
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
[2018-03-30] MEDS ORDERED: NS 0.9% 1000 ML* 1,000 ML IV ONE ×2 (15:06→20:39)
[2018-03-30] MEDS ORDERED: Sucralfate TAB* 1 GM PO ONE (15:08)
[2018-03-30] MEDS ORDERED: Pantoprazole IV* 40 MG IV ONE (15:08)
[2018-03-30 15:45] LABS: ABS Basophils 0 10^3/ul (0-0.2); ABS Eosinophils 0.1 10^3/ul (0-0.6); ABS Lymphocytes 1.7 10^3/ul (1.0-4.8); ABS Neutrophils 8.6 10^3/ul (1.5-7.7); ABS Nucleated RBC 0 10^3/ul; Eosinophil % 0.7 % (0-6); Hematocrit 37 % (35-47); Hemoglobin 12.3 g/dl (12.0-16.0); Mean Corpuscular HGB Conc 34 g/dl (31-36); Mean Corpuscular Hemoglobin 29 pg (27-31); Mean Corpuscular Volume 88 fL (80-97); Mean Platelet Volume 8.6 um3 (7.4-10.4); Nucleated Red Blood Cells % 0; Platelet Count 147 10^3/ul (150-450); Red Blood Count 4.18 10^6/ul (4.00-5.40); Red Cell Distribution Width 15 % (10.5-15); White Blood Count 11.5 10^3/ul (3.5-10.8)
[2018-03-30 15:49] LABS: INR 0.98 (0.77-1.02)
--- NOTE | 2018-03-30 15:51 | RAD ---
INDICATION: Right upper quadrant pain COMPARISON: Gallbladder sonogram February 22, 2013 TECHNIQUE: Longitudinal and transverse scans of the right upper quadrant were obtained. Doppler interrogation of the hepatic and portal venous system was performed. FINDINGS: Liver: The liver is normal in size and echogenicity. There are no focal masses. The liver measures 17.7 cm in cephalocaudal dimension. Vessels: There is normal hepatic and portal venous flow. Bile ducts: There is no evidence of intrahepatic or extrahepatic ductal dilatation. The common duct measures 0.6 cm. Gallbladder: There is a small amount of biliary sludge. The sonographic appearance of the gallbladder is otherwise normal. There is no evidence of calcified cholelithiasis, thickening of the gallbladder wall, or pericholecystic fluid. Pancreas: The visualized pancreas appears normal Right kidney: The right kidney is normal in size and echogenicity. There are no masses or calculi. There is no evidence of hydronephrosis. There is mild prominence of central collecting system. The right kidney measures 11.3 x 4.3 x 5.3 cm. IVC and aorta: The aorta and superior vena cava appear normal. Fluid: There is no ascites. Other: None. IMPRESSION: SMALL AMOUNT OF BILIARY SLUDGE. MILD PROMINENCE OF THE CENTRAL COLLECTING SYSTEM BUT NO HYDRONEPHROSIS.
[2018-03-30 15:55] LABS: EGFR Non-African American 72.7 (>60)
[2018-03-30] MEDS ORDERED: Acetaminophen TAB* 325 MG PO ONE (17:29)
[2018-03-30] MEDS ORDERED: Iohexol 300* (CONTRAST) 10 ML SDV IV ONE (18:42)
[2018-03-30 19:07] LABS: Urine Appearance Clear; Urine Blood Negative (Negative); Urine Color Yellow; Urine Ketones Negative (Negative); Urine Protein Negative (Negative); Urine Specific Gravity 1.011 (1.010-1.030); Urine Urobilinogen Negative (Negative)
--- NOTE | 2018-03-30 20:00 | RAD ---
INDICATION: Abdominal pain COMPARISON: Gallbladder sonogram March 30, 2018; CT abdomen and pelvis February 26, 2013 TECHNIQUE: Axial source images were obtained from the hemidiaphragms to the symphysis pubis following administration of 81 mL Omnipaque 300. Coronal and sagittal reconstructed images were acquired. Lung bases: The lung bases are clear. Liver: The liver is normal in size. There are no masses. There is no ductal dilatation. Gallbladder: There are no calcified gallstones but there does appear to be a small debris within the gallbladder. Earlier ultrasonography suggest gallbladder sludge. There is no evidence of wall thickening or pericholecystic fluid. Spleen: The spleen is at the upper range of normal in size. There are no masses. Pancreas: Limited evaluation due to lack of oral contrast. Adrenal glands: There is no evidence of adrenal mass. Kidneys: The kidneys are normal in size and position. There are prompt nephrograms and there is prompt excretion bilaterally. There are no renal parenchymal masses. There is no evidence of nephrolithiasis. Adenopathy: There is no evidence of adenopathy by size criteria. Fluid collections: There is a small amount of free fluid in the right paracolic gutter. There is perienteric stranding most prominent about the right and transverse colon. Vessels:There are no significant atherosclerotic changes involving the aorta. There is no focal aneurysm. The iliac vessels are normal in caliber. The IVC appears normal. GI tract: Limited evaluation without oral contrast. There appears be mild mural thickening of the gastric mucosa but this could be related to lack of distention. Correlate with clinical findings that would suggest gastritis. Small bowel is grossly normal. There is diffuse mucosal edema of the right and transverse colon with perienteric stranding. The findings are most consistent with a diffuse colitis. Pelvic organs: The uterus and adnexa appear normal Bladder: There are no bladder masses. Abdominal and pelvic soft tissues: The extraperitoneal abdominal and pelvic soft tissues appear normal.. Osseous structures: There are no acute osseous findings. Other: None IMPRESSION: DIFFUSE MUCOSAL EDEMA OF THE RIGHT AND TRANSVERSE COLON WITH PERIENTERIC STRANDING MOST SUGGESTIVE OF A COLITIS. POSSIBLE GASTRITIS. CORRELATION WITH CLINICAL PRESENTATION IS REQUIRED.
--- NOTE | 2018-03-30 20:31 | ED ---
Progress - Progress Note Progress Note: Patient was signed out from Dr. Novak upon shift change pending CT abdomen and pelvis. This patient is a 42 year old F presenting to [facility] with a chief complaint of abd pain that began on 03/28/2018. The patient rates the pain 7/10 in severity. Symptoms aggravated by nothing. Symptoms alleviated by nothing. Patient reports nausea and vomiting (resolved). Patient denies diarrhea. - Results/Orders Results/Orders: CT: CT abdomen and pelvis reveals, per radiologist, DIFFUSE MUCOSAL EDEMA OF THE RIGHT AND TRANSVERSE COLON WITH PERIENTERIC STRANDING MOST SUGGESTIVE OF A COLITIS. POSSIBLE GASTRITIS. CORRELATION WITH CLINICAL PRESENTATION IS REQUIRED. ED physician has reviewed this radiology report. Re-Evaluation - Re-Evaluation First Eval Re-Evaluation Time: 20:30 Change: Unchanged Comment: Discussed results and plan of care with patient Course/Dx - Course Course Of Treatment: Patient was signed out from Dr. Novak upon shift change pending CT abdomen and pelvis. This patient is a 42 year old F presenting to [facility] with a chief complaint of abd pain that began on 03/28/2018. CT abdomen and pelvis reveals, per radiologist, DIFFUSE MUCOSAL EDEMA OF THE RIGHT AND TRANSVERSE COLON WITH PERIENTERIC STRANDING MOST SUGGESTIVE OF A COLITIS. POSSIBLE GASTRITIS. CORRELATION WITH CLINICAL PRESENTATION IS REQUIRED. ED physician has reviewed this radiology report. In the ED course, patient received fluids and Flagyl. Patient will be discharge home with a prescription for Flagyl and Cipro, andwith follow up from PCP and her GI. Patient is agreeable with this plan. - Diagnoses Provider Diagnoses: Colitis Discharge - Sign-Out/Discharge Documenting (check all that apply): Receiving Sign-Out Receiving patient FROM: Chavo Novak - Upon shift change pending CT abdomen/ pelvis - Discharge Plan Condition: Stable Disposition: HOME Prescriptions: Ciprofloxacin TAB* [Cipro 500 MG TAB*] 500 mg PO BID #20 tab MDD 2 metroNIDAZOLE [Flagyl] 500 mg PO BID #20 tablet MDD 2 Patient Education Materials: Colitis (ED) Forms: *Work Release Referrals: Miranda Fitzpatrick MD [Primary Care Provider] - 3 Days Additional Instructions: Call your doctor on Monday for a follow u appt beginning of the week. return if worse or any new symptoms. Call your GI doctor. You need to be seen as soon as possible. You need an out patient colonoscopy. Take all medications as instructed. Attestations Scribe Attestation: This is sebastián Howard documenting for attending Jo Ann Harrison MD. User Type: Provider with Scribe Provider Attestation: The documentation recorded by the scribe accurately reflects the service I personally performed and the decisions made by me.
[2018-03-30] MEDS ORDERED: metroNIDAZOLE TAB* 250 MG PO ONE (20:39)
[2018-03-30] MEDS ORDERED: Ciprofloxacin TAB* 750 MG PO ONE (20:39)
[2018-03-30 21:25] VITALS: BP 108/58
== END 2018-03-30 21:24 | disposition home or self-care (01) ==
LOC: ED 13:42
DX: R10.13 Epigastric pain (principal); R10.11 Right upper quadrant pain; F17.210 Nicotine dependence, cigarettes, uncomplicated
CPT/HCPCS: 36415; 74177; 76705; 80053; 81003; 83605; 83690; 85025; 85610; 86140; 96361; 96374; 99283; A9270-GY; Q9967

== ENCOUNTER → 2018-05-24 13:41 | Emergency (ER) | payer OTHER ==
[~2018-05-24 13:41] MED LIST: NS 0.9% 1000 ML* 1,000 ML IV ONE; PROCHLORPERAZINE INJ 5 MG/ML 2 ML VIAL IV ONE
[2018-05-24 14:17] VITALS: BP 106/57
[2018-05-24 15:03] LABS: ABS Basophils 0.1 10^3/ul (0-0.2); ABS Eosinophils 0.1 10^3/ul (0-0.6); ABS Lymphocytes 1.8 10^3/ul (1.0-4.8); ABS Monocytes 0.4 10^3/ul (0-0.8); ABS Neutrophils 2.6 10^3/ul (1.5-7.7); ABS Nucleated RBC 0 10^3/ul; Eosinophil % 2.1 % (0-6); Hematocrit 37 % (35-47); Hemoglobin 12.6 g/dl (12.0-16.0); Mean Corpuscular HGB Conc 34 g/dl (31-36); Mean Corpuscular Hemoglobin 29 pg (27-31); Mean Corpuscular Volume 86 fL (80-97); Mean Platelet Volume 7.9 um3 (7.4-10.4); Nucleated Red Blood Cells % 0.1; Platelet Count 197 10^3/ul (150-450); Red Blood Count 4.33 10^6/ul (4.00-5.40); Red Cell Distribution Width 15 % (10.5-15); White Blood Count 4.9 10^3/ul (3.5-10.8)
[2018-05-24 15:20] LABS: EGFR Non-African American 75.7 (>60)
[2018-05-24 16:01] LABS: Urine Appearance Cloudy; Urine Blood 1+ (Negative); Urine Color Yellow; Urine Ketones Negative (Negative); Urine Protein Negative (Negative); Urine Red Blood Cell 3+(>10/hpf) (Absent); Urine Specific Gravity 1.018 (1.010-1.030); Urine Urobilinogen Negative (Negative); Urine White Blood Cell Absent (Absent)
--- NOTE | 2018-05-24 18:09 | ED ---
Abdominal Pain/Female - HPI Summary HPI Summary: Patient is a 42-year-old female who presents emergency department for nausea and vomiting times several days. Patient states she is currently being evaluated for possible Crohn's disease and is scheduled for a colonoscopy next month. Patient states she has been having ongoing intermittent dental pain, nausea, vomiting and diarrhea. Patient states that she has had increased nausea and vomiting over the last several days but has subsided today. She denies significant abdominal pain, diarrhea or passing blood in stools or emesis. Patient states she was concerned she may be dehydrated or anemic as she has been in the past. Past medical history of opiate addiction and is currently on Suboxone. She denies denies fever, chills, breast her symptoms, urinary symptoms, vaginal bleeding or discharge. Symptoms are moderate in severity. No current modifying factors. Patient states she has been taking Zofran and Reglan at home with no relief. - History of Current Complaint Chief Complaint: EDAbdPain Stated Complaint: VOMITING/WEAKNESS Time Seen by Provider: 05/24/18 15:46 Hx Obtained From: Patient Hx Last Menstrual Period: 03/28/14 Pain Intensity: 5 Allergies/Adverse Reactions: Allergies Allergy/AdvReac Type Severity Reaction Status Date / Time No Known Allergies Allergy Verified 05/24/18 14:17 PMH/Surg Hx/FS Hx/Imm Hx Previously Healthy: Yes Endocrine/Hematology History: Denies: Hx Anticoagulant Therapy, Hx Diabetes, Hx Thyroid Disease Cardiovascular History: Denies: Hx Hypertension Respiratory History: Reports: Hx Chronic Obstructive Pulmonary Disease (COPD) - advair, atrovent, albuterol, nebulizer tx's PRN, Hx Seasonal Allergies - claritin -D Denies: Hx Asthma GI History: Reports: Hx Gastroesophageal Reflux Disease, Other GI Disorders - Hep C - untx'd Denies: Hx Ulcer History: Reports: Other Problems/Disorders - Uretal stone removed 02/23/13 during cystoscopy Musculoskeletal History: Reports: 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 Sensory History: Denies: Hx Contacts or Glasses, Hx Hearing Aid Opthamlomology History: Denies: Hx Contacts or Glasses Neurological History: Reports: Hx Headaches, Other Neuro Impairments/Disorders - Hx depression Psychiatric History: Reports: Hx Depression, Hx Post Traumatic Stress Disorder, Hx Inpatient Treatment, Hx Community Mental Health Tx, Hx Suicide Attempt, Hx Substance Abuse - heroine, cocaine Denies: Hx Eating Disorder - Surgical History Surgery Procedure, Year, and Place: twin delivery 1998, Infectious Disease History: No Infectious Disease History: Reports: Hx Hepatitis - Hep C, Hx of Known/ Suspected MRSA - leg infection 2009 Denies: Hx Clostridium Difficile, Hx Human Immunodeficiency Virus (HIV), Hx Shingles, Hx Tuberculosis, Traveled Outside the [place] in Last 30 Days - Family History Known Family History: Negative: Cardiac Disease, Hypertension, Diabetes - Social History Occupation: Unemployed Lives: With Family Alcohol Use: None Hx Substance Use: Yes Substance Use Type: Reports: Other Substance Use Comment - Amount & Last Used: states clean for 1 year Hx Tobacco Use: Yes Smoking Status (MU): Heavy Every Day Tobacco Smoker Type: Cigarettes Length of Time of Smoking/Using Tobacco: >1 ppd Review of Systems Constitutional: Negative Negative: Fever, Chills ENT: Negative Cardiovascular: Negative Respiratory: Negative Positive: Vomiting, Nausea. Negative: Abdominal Pain, Diarrhea Genitourinary: Negative Negative: dysuria, discharge, flank pain, hematuria All Other Systems Reviewed And Are Negative: Yes Physical Exam Triage Information Reviewed: Yes Vital Signs On Initial Exam: Initial Vitals Temp Pulse Resp BP Pulse Ox 97.8 F 85 16 106/57 99 05/24/18 14:14 05/24/18 14:14 05/24/18 14:14 05/24/18 14:14 05/24/18 14:14 Vital Signs Reviewed: Yes Appearance: Positive: Well-Appearing - Pt. lying on bed in NAD. Talkative. Skin: Positive: Warm, Dry Head/Face: Positive: Normal Head/Face Inspection Eyes: Positive: Normal, EOMI Neck: Positive: Supple Respiratory/Lung Sounds: Positive: Clear to Auscultation, Breath Sounds Present Cardiovascular: Positive: Normal, RRR Abdomen Description: Positive: Nontender. Negative: CVA Tenderness (R), CVA Tenderness (L), Distended, Guarding Neurological: Positive: Normal, CN Intact II-III Psychiatric: Positive: Affect/Mood Appropriate Diagnostics - Vital Signs Vital Signs Temp Pulse Resp BP Pulse Ox 05/24/18 17:20 97.8 F 85 18 106/57 99 05/24/18 14:14 97.8 F 85 16 106/57 99 - Laboratory Lab Results: Lab Results 05/24/18 05/24/18 05/24/18 Range/Units 14:49 14:49 14:49 WBC 4.9 (3.5-10.8) 10^3/ul RBC 4.33 (4.00-5.40) 10^6/ul Hgb 12.6 (12.0-16.0) g/dl Hct 37 (35-47) % MCV 86 (80-97) fL MCH 29 (27-31) pg MCHC 34 (31-36) g/dl RDW 15 (10.5-15) % Plt Count 197 (150-450) 10^3/ul MPV 7.9 (7.4-10.4) um3 Neut % (Auto) 52.8 (38-83) % Lymph % (Auto) 36.0 (25-47) % Reagan % (Auto) 8.0 H (0-7) % Eos % (Auto) 2.1 (0-6) % Baso % (Auto) 1.1 (0-2) % Absolute Neuts (auto) 2.6 (1.5-7.7) 10^3/ul Absolute Lymphs (auto) 1.8 (1.0-4.8) 10^3/ul Absolute Monos (auto) 0.4 (0-0.8) 10^3/ul Absolute Eos (auto) 0.1 (0-0.6) 10^3/ul Absolute Basos (auto) 0.1 (0-0.2) 10^3/ul Absolute Nucleated RBC 0 10^3/ul Nucleated RBC % 0.1 Sodium 138 (135-145) mmol/L Potassium 4.1 (3.5-5.0) mmol/L Chloride 106 (101-111) mmol/L Carbon Dioxide 26 (22-32) mmol/L Anion Gap 6 (2-11) mmol/L BUN 19 (6-24) mg/dL Creatinine 0.82 (0.51-0.95) mg/dL Est GFR ( Amer) 91.6 (>60) Est GFR (Non-Af Amer) 75.7 (>60) BUN/Creatinine Ratio 23.2 H (8-20) Glucose 141 H (70-100) mg/dL Lactic Acid 1.4 (0.5-2.0) mmol/L Calcium 9.2 (8.6-10.3) mg/dL Total Bilirubin 0.20 (0.2-1.0) mg/dL AST 12 L (13-39) U/L ALT 8 (7-52) U/L Alkaline Phosphatase 56 (34-104) U/L C-Reactive Protein < 1.00 (<8.01) mg/L Total Protein 6.6 (6.4-8.9) g/dL Albumin 3.8 (3.2-5.2) g/dL Globulin 2.8 (2-4) g/dL Albumin/Globulin Ratio 1.4 (1-3) Lipase 17 (11.0-82.0) U/L Beta HCG, Quant < 0.60 mIU/mL Urine Color Urine Appearance Urine pH (5-9) Ur Specific [place] (1.010-1.030) Urine Protein (Negative) Urine Ketones (Negative) Urine Blood (Negative) Urine Nitrate (Negative) Urine Bilirubin (Negative) Urine Urobilinogen (Negative) Ur Leukocyte Esterase (Negative) Urine WBC (Auto) (Absent) Urine RBC (Auto) (Absent) Ur Squamous Epith Cells (Absent) Urine Bacteria (Absent) Urine Glucose (Negative) 05/24/18 Range/Units 15:40 WBC (3.5-10.8) 10^3/ul RBC (4.00-5.40) 10^6/ul Hgb (12.0-16.0) g/dl Hct (35-47) % MCV (80-97) fL MCH (27-31) pg MCHC (31-36) g/dl RDW (10.5-15) % Plt Count (150-450) 10^3/ul MPV (7.4-10.4) um3 Neut % (Auto) (38-83) % Lymph % (Auto) (25-47) % Reagan % (Auto) (0-7) % Eos % (Auto) (0-6) % Baso % (Auto) (0-2) % Absolute Neuts (auto) (1.5-7.7) 10^3/ul Absolute Lymphs (auto) (1.0-4.8) 10^3/ul Absolute Monos (auto) (0-0.8) 10^3/ul Absolute Eos (auto) (0-0.6) 10^3/ul Absolute Basos (auto) (0-0.2) 10^3/ul Absolute Nucleated RBC 10^3/ul Nucleated RBC % Sodium (135-145) mmol/L Potassium (3.5-5.0) mmol/L Chloride (101-111) mmol/L Carbon Dioxide (22-32) mmol/L Anion Gap (2-11) mmol/L BUN (6-24) mg/dL Creatinine (0.51-0.95) mg/dL Est GFR ( Amer) (>60) Est GFR (Non-Af Amer) (>60) BUN/Creatinine Ratio (8-20) Glucose (70-100) mg/dL Lactic Acid (0.5-2.0) mmol/L Calcium (8.6-10.3) mg/dL Total Bilirubin (0.2-1.0) mg/dL AST (13-39) U/L ALT (7-52) U/L Alkaline Phosphatase (34-104) U/L C-Reactive Protein (<8.01) mg/L Total Protein (6.4-8.9) g/dL Albumin (3.2-5.2) g/dL Globulin (2-4) g/dL Albumin/Globulin Ratio (1-3) Lipase (11.0-82.0) U/L Beta HCG, Quant mIU/mL Urine Color Yellow Urine Appearance Cloudy Urine pH 6.0 (5-9) Ur Specific [place] 1.018 (1.010-1.030) Urine Protein Negative (Negative) Urine Ketones Negative (Negative) Urine Blood 1+ A (Negative) Urine Nitrate Negative (Negative) Urine Bilirubin Negative (Negative) Urine Urobilinogen Negative (Negative) Ur Leukocyte Esterase Negative (Negative) Urine WBC (Auto) Absent (Absent) Urine RBC (Auto) 3+(>10/hpf) A (Absent) Ur Squamous Epith Cells Present A (Absent) Urine Bacteria Absent (Absent) Urine Glucose Negative (Negative) Result Diagrams: 05/24/18 14:49 05/24/18 14:49 Lab Statement: Any lab studies that have been ordered have been reviewed, and results considered in the medical decision making process. Abdominal Pain Fem Course/Dx - Course Course Of Treatment: Patient presenting with recent nausea and vomiting and concern for dehydration. She is afebrile with stable vital signs. She has benign abdominal exam. Blood work was obtained in triage and is unremarkable. Will give patient IV fluids try IV Compazine for nausea. Patient is relieved that her blood work is normal and agrees with plan. Shortly after examined patient she received her medication patient became very agitated and presenting to the emergency department. She took out her IV. Pt. states she is very anxious being in the ER and needs to leave to gete her bus home. Pt. dc home. To f.u with GI and PCP as scheduled. - Diagnoses Provider Diagnoses: Nausea & vomiting Discharge - Sign-Out/Discharge Documenting (check all that apply): Patient Departure - Discharge Plan Condition: Good Disposition: HOME Patient Education Materials: Acute Nausea and Vomiting (ED) Referrals: Miranda Fitzpatrick MD [Primary Care Provider] - Additional Instructions: Follow up with GI and PCP as scheduled Increase fluids Return to ER if symptoms change or worsen - Billing Disposition and Condition Condition: GOOD Disposition: Home
== END | disposition home or self-care (01) ==
LOC: ED 13:41
DX: R11.2 Nausea with vomiting, unspecified (principal); J44.9 Chronic obstructive pulmonary disease, unspecified; F17.210 Nicotine dependence, cigarettes, uncomplicated
CPT/HCPCS: 36415; 80053; 81003; 81015; 83605; 83690; 84702; 85025; 86140; 96361; 96374; 99282; J0780

== ENCOUNTER → 2018-07-04 10:43 | Day surgery (SDC) | payer OTHER ==
[~2018-07-04 10:43] MED LIST changes: +Buffered Lidocaine 0.9% SYRIN* 5 ML/SYR SYRINGE INTRADERM ONE; +Dexamethasone IV* 4 MG/ML 1 ML (4 MG) ONE; +Midazolam* 1 MG/ML 2 ML VIAL (2 MG) ONE; +Midazolam* 1 MG/ML 5 ML VIAL (5 MG) ONE; -NS 0.9% 1000 ML* 1,000 ML IV ONE; +Naloxone* 0.4 MG/ML 1 ML VIAL IV PRN; +Ondansetron INJ* 2 MG/ML VIAL ONE; -PROCHLORPERAZINE INJ 5 MG/ML 2 ML VIAL IV ONE; +Propofol* 10 MG/ML 20 ML BTL IV PUSH ONE; +Succinylcholine* 20 MG/ML 10 ML VIAL ONE; +fentaNYL* 50 MCG/ML 2 ML VIAL (100 MCG VIAL) ONE
[2018-07-04 15:17] VITALS: BP 107/61
--- NOTE | 2018-07-05 07:35 | PRO ---
PROCEDURE NOTE: DATE OF PROCEDURE: 07/04/18 PROCEDURE: EGD with biopsy. MEDICATIONS: Given by Anesthesia. INDICATIONS: Abdominal pain, diarrhea, GERD, weight loss. CT in March 2018 with possible gastritis. DESCRIPTION OF PROCEDURE: Full disclosure of risks was reviewed with the patient as detailed on the consent form. The patient was placed in the left lateral decubitus position and monitored with continuous pulse oximetry, interval blood pressure monitoring, and direct observation. A bite-block was placed between the teeth. An Olympus gastroscope was then inserted into the patient's mouth and advanced down the esophagus into the stomach and into the distal duodenum. Findings are described below. FINDINGS: Esophagus was a tubular structure without rings or strictures. There was a normal Z-line at 40 cm. Scope was then advanced into the stomach. Stomach was examined in the forward and retroflex views. There was mild gastric antral erythema which was biopsied. There were some areas that appeared to have a whitish tint to the mucosa. Possible that these represent areas of healed erosions. No active erosions or ulcers noted. Scope was advanced into the duodenum. The bulb appeared a bit flattened, possibly mildly atrophied. Postbulbar duodenum was more normal in appearance. Biopsies obtained. There was a very small 2- to 3-mm nodule in the duodenal bulb, which was biopsied and labeled separately. Scope was then withdrawn from the patient. The patient tolerated the procedure well. IMPRESSION: 1. Gastric antral erythema. 2. Areas of whitish pale mucosa suggestive of possible healed erosions. Biopsied. 3. Possible flattening and atrophy of the duodenal bulb mucosa. Biopsied. 4. Small duodenal bulb nodule which was biopsied. FOLLOWUP: 1. Await pathology. 2. Continue PPI. 3. Proceed with colonoscopy. See separately dictated procedure report. Thank you for this referral. [id number]/[facility] #: [id number] MTDRufino
--- NOTE | 2018-07-05 07:44 | PRO ---
PROCEDURE REPORT: DATE OF PROCEDURE: 07/04/18 PROCEDURE: Colonoscopy with biopsy. INDICATIONS: Abdominal pain, diarrhea, weight loss. CT scan in March 2018 suggested possible right and transverse colon colitis. MEDICATIONS GIVEN: By Anesthesia. PROCEDURE IN DETAIL: Full disclosure of risks was reviewed with the patient as detailed on the consent form. The patient was placed in the left lateral decubitus position and monitored with continuous pulse oximetry, capnography, interval blood pressure monitoring, and direct observation. After anorectal examination was performed, the pediatric colonoscope was inserted into the rectum and advanced to the level of the terminal ileum. The cecum was fully inflated allowing complete view including the medial wall between the IC valve and appendiceal orifice. Quality of the prep was fair to poor. Careful inspection was made as the colonoscope was withdrawn. A retroflex view of the rectum was not performed due to small rectal vault and mild inflammation in the rectum. Findings and interventions are described below. The patient tolerated the procedure well and was recovered in the GI recovery area. FINDINGS: Anorectal exam notable for small external anal skin tag. Scope was slowly advanced to the left colon. The left colon was very difficult due to quite tortuous sigmoid and descending colon. There were loops that formed in the colon, which were difficult to reduce. We found that pressure on the sigmoid area did help to advance the scope forward. The scope was ultimately able to reach the cecum and TI was briefly intubated. Terminal ileal mucosa was normal in appearance. Colonoscope was then slowly withdrawn throughout the colon. There were areas of solid to thick liquid brown stool. Prep was overall fair to poor. This exam is likely not satisfactory to identify small polyps, although large polyps or masses should be able to be seen with this level of prep. Random biopsies were obtained throughout the colon. Around the last 5 to 10 cm, there was mild erythema in the rectum. The mucosa had a granular appearance. There was also a possible linear erosion in the distal rectum. Biopsies obtained from this area and labeled separately. Small internal hemorrhoids were noted. The scope was then withdrawn from the patient. IMPRESSION: 1. Very difficult colonoscopy due to loopy and tortuous left colon. 2. Prep was fair to poor. Colonic mucosa did not appear abnormal with the exception of the last 5 to 10 cm which had a potential appearance of mild colitis or proctitis. Biopsies obtained. RECOMMENDATIONS: 1. We would continue MiraLAX daily for constipation. 2. Await pathology. 3. The patient will need repeat colonoscopy for colon cancer screening at age 48. She will again need anesthesia and extended preparation. Thank you very much for this referral. [id number]/[facility] #: [id number] DANNIELLE
== END | disposition home or self-care (01) ==
LOC: OR 10:43
PROVIDERS: ATTEND Internal Medicine Gastroenterology
DX: R10.9 Unspecified abdominal pain (principal); R11.2 Nausea with vomiting, unspecified; R19.7 Diarrhea, unspecified; R63.4 Abnormal weight loss; J44.9 Chronic obstructive pulmonary disease, unspecified; K21.9 Gastro-esophageal reflux disease without esophagitis; I10 Essential (primary) hypertension; B19.20 Unspecified viral hepatitis C without hepatic coma; K59.00 Constipation, unspecified; F17.210 Nicotine dependence, cigarettes, uncomplicated; F41.8 Other specified anxiety disorders; F43.10 Post-traumatic stress disorder, unspecified; F16.11 Hallucinogen abuse, in remission
CPT/HCPCS: 87077; 88305; J0330; J1100; J2250; J2405; J2704; J3010

== ENCOUNTER 2019-06-21 21:04 | Emergency (ER) | payer OTHER ==
[2019-06-21] MEDS ORDERED: NS 0.9% 1000 ML** 1,000 ML IV ONE ×2 (21:08→21:48)
--- NOTE | 2019-06-21 21:30 | ED ---
Psychiatric Complaint - HPI Summary HPI Summary: 43 year old female presents to the ED after her neighbors called EMS secondary to the patient being severely agitated. THIS IS A LEVEL 5 CAVEAT, PATIENT IS LETHARGIC AND UNABLE TO GIVE HISTORY. Per EMS, patient was by herself, throwing items around her home. She was given 5mg Versed by EMS and as a result, is lethargic upon arrival. Per police, she has a history of heroin use. - History Of Current Complaint Time Seen by Provider: 06/21/19 21:07 Hx Obtained From: EMS, Other: - Police Hx From Patient Unobtainable Due To: Altered Mental Status - Lethargy Hx Last Menstrual Period: 03/28/14 ?: No Onset/Duration: Lasting Minutes Character: Lethargic - Allergies/Home Medications Allergies/Adverse Reactions: Allergies Allergy/AdvReac Type Severity Reaction Status Date / Time No Known Allergies Allergy Verified 07/04/18 11:54 Home Medications: Home Medications Buprenorphine HCl/Naloxone HCl [Buprenor-Nalox 12-3 mg Sl Film] 2 film SL DAILY 06/21/19 [History Confirmed 06/21/19] Naproxen TAB* [Naprosyn 250 mg TAB*] 500 mg PO BID PRN 06/21/19 [History Confirmed 06/21/19] Venlafaxine EXT RELEASE CAP* [Effexor Xr CAP*] 150 mg PO DAILY 06/21/19 [ History Confirmed 06/21/19] Zolpidem TAB* [Ambien TAB*] 10 mg PO BEDTIME MDD 10 mg 06/21/19 [History Confirmed 06/21/19] clonazePAM TAB(*) [KlonoPIN TAB(*)] 1 mg PO QID MDD 4mg 06/21/19 [History Confirmed 06/21/19] PMH/Surg Hx/FS Hx/Imm Hx Endocrine/Hematology History: Reports: Hx Anemia - Spring 2017- during recovery from 11/29 hospitalization Denies: Hx Anticoagulant Therapy, Hx Diabetes, Hx Thyroid Disease Cardiovascular History: Denies: Hx Hypertension, Other Cardiovascular Problems/Disorders Respiratory History: Reports: Hx Chronic Obstructive Pulmonary Disease (COPD) - advair, atrovent, albuterol, nebulizer tx's PRN, Hx Seasonal Allergies - claritin -D, Other Respiratory Problems/Disorders - Respiratory failure 11/2017- transfered to [facility] Denies: Hx Asthma GI History: Reports: Hx Gastroesophageal Reflux Disease, Other GI Disorders - Hep C - untx'd Denies: Hx Hiatal Hernia, Hx Jaundice, Hx Ulcer History: Reports: Hx Kidney Infection - history of severe kidney infection 2012, Hx Kidney Stones - 2012, Other Problems/Disorders - Uretal stone removed 02/23/13 during cystoscopy Musculoskeletal History: Reports: 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, Hx Tendonitis - left elbow- surgery-1999 Denies: Other Musculoskeletal History Sensory History: Denies: Hx Contacts or Glasses, Hx Hearing Aid Opthamlomology History: Denies: Hx Contacts or Glasses Neurological History: Reports: Hx Headaches, Other Neuro Impairments/Disorders - Hx depression Psychiatric History: Reports: Hx Anxiety - on med, Hx Depression, Hx Post Traumatic Stress Disorder, Hx Inpatient Treatment, Hx Community Mental Health Tx , Hx Suicide Attempt, Hx Substance Abuse - heroine, cocaine Denies: Hx Eating Disorder - Surgical History Surgery Procedure, Year, and Place: twin delivery 1998, Hx Anesthesia Reactions: Yes - states reaction to spinal anesthesia-states she had every side effect Infectious Disease History: Reports: Hx Hepatitis - Hep C, Hx of Known/ Suspected MRSA - leg infection 2009 Denies: Hx Clostridium Difficile, Hx Human Immunodeficiency Virus (HIV), Hx Shingles, Hx Tuberculosis - Family History Known Family History: Negative: Cardiac Disease, Hypertension, Diabetes - Social History Alcohol Use: None Alcohol Amount: In recovery Hx Substance Use: Yes Substance Use Type: Reports: Other Substance Use Comment - Amount & Last Used: states clean for 1 year Hx Tobacco Use: Yes Smoking Status (MU): Heavy Every Day Tobacco Smoker Type: Cigarettes Amount Used/How Often: 1 ppd for 30 years Length of Time of Smoking/Using Tobacco: >1 ppd Have You Smoked in the Last Year: Yes Review of Systems - ROS Summary Review of Systems Summary: THIS IS A LEVEL 5 CAVEAT. PATIENT IS LETHARGIC AND UNABLE TO GIVE HISTORY. Home Medications Medication Instructions Recorded Confirmed Type Albuterol HFA INHALER* [Ventolin 2 puff INH Q4H PRN 12/06/17 07/04/18 History HFA Inhaler*] BuPROPion XL* [Bupropion XL*] 300 mg PO QAM 12/06/17 07/04/18 History Buprenorphine HCl/Naloxone HCl 1 mis SL BID 12/06/17 07/04/18 History [Suboxone 12 mg-3 mg Sl Film] Gabapentin CAP(*) [Neurontin 400 800 mg PO TID 12/06/17 07/04/18 History mg CAP(*)] Prazosin CAP* [Minipress CAP*] 1 - 2 mg PO BEDTIME 12/06/17 07/04/18 History Venlafaxine EXT RELEASE CAP* 75 mg PO TID 12/06/17 07/04/18 History [Effexor Xr CAP*] Acetaminophen TAB* [Tylenol TAB*] 650 mg PO Q6H PRN tab 01/07/18 07/04/18 Rx Docusate CAP* [Colace Cap*] 200 mg PO BID #60 cap 01/07/18 07/04/18 Rx Metoclopramide TAB* [Reglan TAB*] 5 mg PO Q8H PRN #20 tab 01/07/18 07/04/18 Rx Ondansetron ODT TAB* [Zofran 4 MG 4 mg SL Q6H PRN tab 01/07/18 07/04/18 Rx Odt TAB*] Ranitidine TAB (NF) [Zantac TAB 150 mg PO BID 05/02/18 07/04/18 History (NF)] Advair Diskus 250-50* 1 puff INH BID 06/28/18 07/04/18 History Bentyl CAP* 20 mg PO BID PRN 06/28/18 07/04/18 History Naproxen [Naproxen 500 mg tab] 1 tab PO BID PRN 06/28/18 07/04/18 History Zolpidem TAB* [Ambien*] 10 mg PO BEDTIME PRN 06/28/18 07/04/18 History Positive: Other - Agitation per EMS All Other Systems Reviewed And Are Negative: No Physical Exam - Summary Physical Exam Summary: THIS IS A LEVEL 5 CAVEAT. PATIENT IS LETHARGIC AND UNABLE TO GIVE HISTORY. General: Well-developed, thin female. No acute distress. Lethargic upon arrival. HEENT: Normocephalic, Atraumatic. Eyes: Conjuctiva normal, PERRL. Ears: TMs within normal limits. Nares: (-) discharge, (-) erythema. Oropharynx: Clear, mucous membranes moist, (-) exudates. Neck: Soft, FROM, (-) lymphadenopathy, (-) thyromegaly, (-) JVD. Cardiovascular: Normal sinus rhythm, (-) murmur. Lungs: Clear to auscultation bilaterally (-) wheezes, (-) rales, (-) rhonchi. Abdomen: Soft, non-tender, non-distended, (-) organomegaly, normal bowel sounds. Back: (-) CVA tenderness Extremities: No edema. Skin: Warm, dry, (-) rash. Neuro: Alert and oriented x3, no focal deficits. Psychiatric: Mood normal, affect normal. Triage Information Reviewed: Yes Vital Signs Reviewed: Yes Completion Of Physical Exam Limited Due To: Level 5 Procedures - Sedation Patient Received Moderate/Deep Sedation with Procedure: No Diagnostics - Laboratory Result Diagrams: 06/21/19 22:03 06/21/19 22:03 Lab Statement: Any lab studies that have been ordered have been reviewed, and results considered in the medical decision making process. - EKG 2118 Cardiac Rate: NL - 62 bpm EKG Rhythm: Sinus Rhythm Summary of EKG Findings: EKG at 2118 reveals normal sinus rhythm with rate of 62 BPM, no acute changes, no ischemic changes. This EKG was reviewed and interpreted by Dr. Cheung. Course/Dx - Course Course Of Treatment: 44-year-old female with severe agitation. Brought in by police. Patient sedated with Versed secondary to agitation. Of note, police state they were called to her home last night for a domestic dispute. Tonight when they were called for loud noises she was the only one home and she was apparently throwing things around her apartment. Initially patient is quite sleepy to lethargic. After medication wears off she is alert and oriented 3. GCS of 15. She admits to relapsing with heroin and cocaine use in the last 3 months. After being sober for 2 years. Patient declines any help with her addiction at this time. She states she still goes to meetings. He is concerned about being on parole. She requests discharge to home. Denies any suicidal ideation. Follow-up with PCP. Webster sooner for any worsening symptoms. - Differential Dx/Clinical Impression Provider Diagnosis: Agitation Discharge ED - Sign-Out/Discharge Documenting (check all that apply): Patient Departure - discharge - Discharge Plan Condition: Stable Disposition: HOME Referrals: Miranda Fitzpatrick MD [Primary Care Provider] - Additional Instructions: Follow up with your primary care provider in 2-3 days. Return to the Emergency Department if you experience new or worsened symptoms. - Billing Disposition and Condition Condition: STABLE Disposition: Home - Attestation Statements Document Initiated by Davi: Yes Documenting Scribe: Trino Liu Provider For Whom Davi is Documenting (Include Credential): Calista Cheung MD. Scribe Attestation: Trino Espinoza, scribed for Calista Cheung MD. on 06/22/19 at 0205. Scribe Documentation Reviewed: Yes Provider Attestation: The documentation as recorded by the [email or web address] jacobsen accurately reflects the service I personally performed and the decisions made by , Calista Cheung MD. Status of Scribe Document: Viewed
[2019-06-21 21:53] LABS: Urine Appearance Cloudy; Urine Bacteria 1+ (Absent); Urine Bilirubin Negative (Negative); Urine Blood 1+ (Negative); Urine Color Yellow; Urine Glucose Negative (Negative); Urine Ketones Negative (Negative); Urine Nitrite Negative (Negative); Urine Protein 1+(30 mg/dL) (Negative); Urine Red Blood Cell 3+(>10/hpf) (Absent); Urine Specific Gravity 1.026 (1.010-1.030); Urine Squamous Epithelial Cell Present (Absent); Urine Urobilinogen Negative (Negative); Urine White Blood Cell Trace(0-5/hpf) (Absent)
[2019-06-21 22:02] LABS: Urine Benzodiazepine Screen Presumptive Positive (None Detect); Urine Opiates Screen Presumptive Positive (None Detect)
[2019-06-21 22:12] LABS: ABS Lymphocytes 1.1 10^3/ul (1.0-4.8); ABS Monocytes 0.5 10^3/ul (0-0.8); ABS Neutrophils 5.3 10^3/ul (1.5-7.7); Eosinophil % 0.5 %; Hematocrit 32 % (35-47); Hemoglobin 10.8 g/dL (12.0-16.0); Lymphocyte % 16.1 %; Mean Corpuscular HGB Conc 33 g/dL (31-36); Mean Corpuscular Hemoglobin 29 pg (27-31); Mean Corpuscular Volume 87 fL (80-97); Mean Platelet Volume 7.8 fL (7.4-10.4); Nucleated Red Blood Cells % 0.1; Platelet Count 191 10^3/uL (150-450); Red Blood Count 3.74 10^6 /uL (3.70-4.87); Red Cell Distribution Width 14 % (10-15)
[2019-06-21 22:26] LABS: ALT 10 U/L (7-52); AST 18 U/L (13-39); Albumin 3.9 g/dL (3.2-5.2); Albumin/Globulin Ratio 1.4 (1-3); Alkaline Phosphatase 53 U/L (34-104); Anion Gap 4 mmol/L (2-11); BUN/Creatinine Ratio 33.3 (8-20); Blood Urea Nitrogen 30 mg/dL (6-24); CO2 Carbon Dioxide 28 mmol/L (22-32); Chloride 108 mmol/L (101-111); EGFR African American 81.9 (>60); EGFR Non-African American 67.7 (>60); Globulin 2.7 g/dL (2-4); Glucose 90 mg/dL (70-100); Potassium 4.2 mmol/L (3.5-5.0); Sodium 140 mmol/L (135-145); Total Protein 6.6 g/dL (6.4-8.9)
[2019-06-21 22:33] LABS: HCG Pregnancy < 0.60 mIU/mL
[2019-06-21 22:36] LABS: Acetaminophen < 15 mcg/mL; Alcohol < 10 mg/dL (<10); Salicylate < 2.50 mg/dL (<30)
[2019-06-21 22:50] LABS: TSH (Thyroid Stimulating Horm) 1.44 mcIU/mL (0.34-5.60)
[2019-06-22] MEDS ORDERED: Naproxen TAB* 250 MG PO PRN (00:12)
[2019-06-22] MEDS ORDERED: Acetaminophen TAB* 325 MG PO PRN (00:12)
[2019-06-22 00:39] VITALS: BP 102/48
[2019-06-22] MEDS ORDERED: BuPROPion XL* 300 MG TAB.XL PO SCH (09:00)
[2019-06-22] MEDS ORDERED: NALOXONE SL SCH (09:00)
[2019-06-22] MEDS ORDERED: Gabapentin CAP(*) 400 MG PO SCH (09:00)
[2019-06-22] MEDS ORDERED: clonazePAM TAB(*) 1 MG PO SCH (09:00)
[2019-06-22] MEDS ORDERED: [UNRECOGNIZED DRUG - OTHER] SL SCH (09:00)
[2019-06-22] MEDS ORDERED: Venlafaxine EXT RELEASE CAP* 75 MG PO SCH (09:00)
[2019-06-22] MEDS ORDERED: BUPRENORPHINE SL SCH (09:00)
[2019-06-22] MEDS ORDERED: Zolpidem TAB* 10 MG PO SCH (21:00)
== END 2019-06-22 00:39 | disposition home or self-care (01) ==
LOC: ED 21:04
DX: R45.1 Restlessness and agitation (principal); J44.9 Chronic obstructive pulmonary disease, unspecified; K21.9 Gastro-esophageal reflux disease without esophagitis; F41.9 Anxiety disorder, unspecified; F32.9 Major depressive disorder, single episode, unspecified; F43.10 Post-traumatic stress disorder, unspecified; F17.210 Nicotine dependence, cigarettes, uncomplicated; Z87.442 Personal history of urinary calculi; Z79.899 Other long term (current) drug therapy
CPT/HCPCS: 36415; 80053; 80307; 80320; 80329; 81003; 81015; 83605; 84443; 84702; 85025; 87040; 87086; 93005; 96360; 96361; 99284; G0480